=== PATIENT | male | born 1950 | race Caucasian/White ===

== ENCOUNTER 2019-09-30 16:33 | Outpatient (CLI) | payer OTHER, MEDICARE, SELFPAY ==
--- NOTE | ~2019-09-30 | US_ITS ---
EXAMINATION: US venous doppler [facility] EXAM DATE: 09/30/2019 17:07 INDICATION: Left leg swelling, lump. TECHNIQUE: Multiple grayscale, color flow and Doppler images of the left lower extremity deep venous system were obtained and reviewed. There is no prior study for comparison. FINDINGS: The left common femoral, femoral and profunda veins demonstrate normal color flow, respirat ory variation, augmentation and compressibility. Compressibility, color flow confirmed within the le ft popliteal, posterior tibial, peroneal, and greater saphenous veins. IMPRESSION: 1. No left lower extremity deep venous thrombosis. Reviewed, dictated and finalized at location A.
== END 2019-09-30 16:34 | disposition home or self-care (01) ==
PROVIDERS: PCP Emergency Medicine; Visit Provider Orthopaedic Surgery
DX: M79.662 Pain in left lower leg (principal)
CPT/HCPCS: 93971

== ENCOUNTER 2019-10-13 09:32 | Outpatient (CLI) | payer OTHER, MEDICARE, SELFPAY ==
[2019-10-13 10:41] LABS: Alanine Aminotransferase 28 U/L (4-50); Albumin Level 4.2 g/dL (3.5-5.1); Alkaline Phosphatase 73 U/L (38-126); Aspartate Amino Transferase 35 U/L (17-59); Blood Urea Nitrogen 13 mg/dL (9-20); Calcium 8.8 mg/dL (8.4-10.2); Carbon Dioxide 28 mmol/L (22-30); Chloride 104 mmol/L (98-107); Cholesterol 178 mg/dL (0-200); Estimated Glomerular Filt Rate > 60; Glucose 122 mg/dL (75-110); HDL Direct 50 mg/dL; Potassium 4.3 mmol/L (3.4-5.0); Sodium 136 mmol/L (137-145); Triglycerides 75 mg/dL (<150)
[2019-10-13 10:51] LABS: Hemoglobin A1C 5.9 % (<5.7)
[2019-10-13 10:52] LABS: LDL Cholesterol Direct 121 mg/dL
== END 2019-10-13 09:33 | disposition home or self-care (01) ==
LOC: ANHLAB 09:35
PROVIDERS: PCP Emergency Medicine; Visit Provider Emergency Medicine
DX: E78.5 Hyperlipidemia, unspecified (principal); E11.9 Type 2 diabetes mellitus without complications
CPT/HCPCS: 36415; 80053; 80061; 83036

== ENCOUNTER 2019-10-27 08:16 | Outpatient (CLI) | payer OTHER, MEDICARE, SELFPAY ==
--- NOTE | ~2019-10-27 | US_ITS ---
US art doppler w press LE BI INDICATION: Swelling and discoloration TECHNIQUE: Segmental pressures and plethysmographic and Doppler waveforms of the brachial and lower e xtremity arteries were obtained. COMPARISON: None. FINDINGS: Right and left brachial artery pressures of 1:30 mm Hg and 133 mm Hg, respectively, are concordant (n ormal difference <= 30 mmHg). No significant pressure gradients. Biphasic flow in both lower extremit y arteries. The right ankle-brachial index (JUICE) is 1.31 (normal >= 0.9-1.0). The right great toe-brachial index (TBI) is 0.76 (normal >= 0.60). The left JUICE is 1.13. The left TBI is 0.73. IMPRESSION: 1. Normal bilateral ankle and toe brachial indices. Reviewed, dictated and finalized at location A.
== END 2019-10-27 08:17 | disposition home or self-care (01) ==
PROVIDERS: PCP Emergency Medicine; Visit Provider Emergency Medicine
DX: I73.9 Peripheral vascular disease, unspecified (principal)
CPT/HCPCS: 93923

== ENCOUNTER 2020-02-16 10:24 | Outpatient (CLI) | payer OTHER, MEDICARE, SELFPAY ==
--- NOTE | ~2020-02-16 | US_ITS ---
EXAMINATION:US venous doppler LE RT INDICATION:Skin changes. Status post fall. TECHNIQUE: Multiple grayscale, color flow and Doppler images of the right lower extremity deep venous systems were obtained and reviewed. COMPARISON:No prior studies for comparison. FINDINGS: The common femoral, superficial femoral and popliteal veins demonstrate normal respiratory variation, augmentation and compressibility. Color flow is also seen within the posterior tibial, pe roneal, greater saphenous and profunda veins. IMPRESSION: 1: No lower extremity deep venous thrombosis. Reviewed, dictated and finalized at location B.
== END 2020-02-16 10:25 | disposition home or self-care (01) ==
PROVIDERS: PCP Family Medicine; Visit Provider Orthopaedic Surgery
DX: R23.8 Other skin changes (principal); M79.89 Other specified soft tissue disorders
CPT/HCPCS: 93971

== ENCOUNTER 2020-03-29 07:09 | Outpatient (CLI) | payer OTHER, MEDICARE, SELFPAY ==
[2020-03-29 07:48] LABS: Hematocrit 41.8 % (42.0-52.0); Hemoglobin 14.4 g/dL (14.0-18.0); Mean Corpuscular HGB Conc 34.4 g/dl (32-36); Mean Corpuscular Hemoglobin 31.8 pg (26-34); Mean Corpuscular Volume 92.3 fl (80-100); Mean Platelet Volume 10.1 fl (7.4-10.4); Platelet Count Result 231 k/mm3 (150-375); Red Blood Count 4.53 M/mm3 (4.6-6.20); Red Cell Distribution Width 13.4 % (11.5-14.5)
[2020-03-29 07:53] LABS: Add Urine Microscopic? NO; Appearance Urine Clear (Clear); Bilirubin Urine Negative (Negative); Blood Urine Negative (Negative); Color Urine Yellow (Yellow); Glucose Urine UA Negative (Negative); Ketones Urine Negative (Negative); Leukocyte Esterase Ur Negative LEU/UL (NEGATIVE); Nitrate Urine Negative (Negative); Protein Urine Negative (Negative); RBC Urine 0-2 /hpf (0-2); Urobilinogen Urine Negative mg/dL (<2.0)
[2020-03-29 08:01] LABS: Alanine Aminotransferase 30 U/L (4-50); Alkaline Phosphatase 56 U/L (38-126); Anion Gap 6 mmol/L (8-16); Aspartate Amino Transferase 39 U/L (17-59); Bilirubin,Total 0.8 mg/dL (0.2-1.3); Blood Urea Nitrogen 12 mg/dL (9-20); Carbon Dioxide 30 mmol/L (22-30); Chloride 103 mmol/L (98-107); Cholesterol 173 mg/dL (0-200); Estimated Glomerular Filt Rate > 60; Glucose 118 mg/dL (75-110); HDL Direct 53 mg/dL; Potassium 4.6 mmol/L (3.4-5.0); Sodium 139 mmol/L (137-145); Triglycerides 72 mg/dL (<150)
[2020-03-29 08:12] LABS: LDL Cholesterol Direct 110 mg/dL
[2020-03-29 08:31] LABS: Hemoglobin A1C 5.4 % (<5.7)
[2020-03-29 08:35] LABS: Prostate Specific Antigen 0.4 ng/mL (< OR = 4.0)
== END 2020-03-29 07:10 | disposition home or self-care (01) ==
PROVIDERS: PCP Family Medicine; Visit Provider Family Medicine
DX: E78.2 Mixed hyperlipidemia (principal); R73.01 Impaired fasting glucose; R35.1 Nocturia; R53.83 Other fatigue; I10 Essential (primary) hypertension
CPT/HCPCS: 36415; 80053; 80061; 81003; 83036; 84153; 84443; 85027

== ENCOUNTER 2020-05-02 07:33 | Outpatient (CLI) | payer OTHER, MEDICARE, SELFPAY ==
--- NOTE | 2020-05-02 | EST_ITS ---
Patient Info Name: Dimitri Yap Age: 70 years : 1950 Gender: Male Ht: 71 in Wt: 251 lbs BSA: 2.43 m2 Exam Date: 05/02/2020 8:35 AM Exam Location: [facility] Stress Patient Status: Outpatient Admit Date: 05/02/2020 Staff Ordering Physician: Jacqui Bush PA-C Attending Provider: Jacqui Bush PA-C Exercise Technologist: Tamiko Dangelo CT Exercise Physician: Joseph Zapata DO Exam Type: CA stress david w NM Study Info A regadenoson stress test was performed. Summary 1. 1. Negative lexiscan stress test for ischemic ST changes by ECG criteria. 2. 2. Stable hemodynamics throughout the test. 3. 3. Nuclear scan to follow and will be reported separately. Please correlate with it. 4. 4. Patient informed of the above results. Protocol: Lexiscan Stress ECG Details Stage: REST Duration (min): 14 min : 30 sec HR (bpm): 69 SBP (mmHg): --- DBP (mmHg): --- Stage: STAGE 1 Duration (min): 0 min : 59 sec HR (bpm): 85 SBP (mmHg): 137 DBP (mmHg): 89 Stage: RECOVERY Duration (min): 1 min : 0 sec HR (bpm): 90 SBP (mmHg): 137 DBP (mmHg): 89 Stage: RECOVERY Duration (min): 2 min : 0 sec HR (bpm): 88 SBP (mmHg): 137 DBP (mmHg): 89 Stage: RECOVERY Duration (min): 2 min : 58 sec HR (bpm): 84 SBP (mmHg): 133 DBP (mmHg): 78 Rest HR: 69 bpm Peak HR: 91 bpm Peak Sys BP: 137 mmHg Max Pred HR: 149 bpm % Max Pred HR: 61 % Target HR: 127 bpm Max RPP: 12,467 bpm*mmHg Termination Reason: Completed protocol Cardiac Symptoms: Shortness of breath Total Time: 1 min : 0 sec Peak Hayden BP: 89 mmHg Total Dose: 0.4 mg Resting ECG Sinus rhythm, RBBB. Stress ECG No ST changes. Arrhythmias None. Report Signatures
--- NOTE | ~2020-05-02 | NM_ITS ---
EXAMINATION: NM david stress w perfusion DATE: 05/02/2020 09:52 INDICATION: Chest pain. TECHNIQUE: Rest images were obtained following intravenous administration of 10 mCi Tc99m tetrofosmin (Myoview). The patient was infused intravenously with Lexiscan (regadenoson). Then, 31.9 mCi Tc99m t etrofosmin (Myoview) was administered intravenously, and stress images were obtained. Data was recons tructed into short axis and horizontal and vertical long axis SPECT images. Gated SPECT images were a lso obtained. COMPARISON: Myocardial perfusion imaging 06/10/2009 FINDINGS: There is no definite reversible or fixed perfusion abnormality to suggest ischemia or infar ction. There is no segmental wall motion abnormality. Left ventricular ejection fraction measures 6 9%. IMPRESSION: 1. No definite ischemia or infarct. 2. Normal left ventricular ejection fraction measuring 69%. Reviewed, dictated and finalized at location A. KNITTER
== END 2020-05-02 07:34 | disposition home or self-care (01) ==
PROVIDERS: PCP Family Medicine; Visit Provider Physician Assistant
DX: R07.9 Chest pain, unspecified (principal); I10 Essential (primary) hypertension; E66.9 Obesity, unspecified
CPT/HCPCS: 78452; 93017; A9502; J2785

== ENCOUNTER 2020-10-10 13:17 | Outpatient (CLI) | payer OTHER, MEDICARE, SELFPAY ==
[2020-10-10 13:48] LABS: Hemoglobin A1C 5.9 % (<5.7)
[2020-10-10 13:49] LABS: Alanine Aminotransferase 31 U/L (4-50); Albumin Level 4.2 g/dL (3.5-5.1); Alkaline Phosphatase 73 U/L (38-126); Anion Gap 9 mmol/L (8-16); Aspartate Amino Transferase 44 U/L (17-59); Bilirubin,Total 0.9 mg/dL (0.2-1.3); Blood Urea Nitrogen 14 mg/dL (9-20); Calcium 9.4 mg/dL (8.4-10.2); Carbon Dioxide 28 mmol/L (22-30); Chloride 103 mmol/L (98-107); Estimated Glomerular Filt Rate > 60; Glucose 159 mg/dL (75-110); Potassium 4.1 mmol/L (3.4-5.0); Sodium 140 mmol/L (137-145)
== END 2020-10-10 13:18 | disposition home or self-care (01) ==
PROVIDERS: PCP Family Medicine; Visit Provider Physician Assistant
DX: R73.01 Impaired fasting glucose (principal); I10 Essential (primary) hypertension
CPT/HCPCS: 36415; 80053; 83036

== ENCOUNTER 2021-04-11 06:51 | Outpatient (CLI) | payer OTHER, MEDICARE, SELFPAY ==
[2021-04-11 07:51] LABS: Alanine Aminotransferase 32 U/L (4-50); Albumin Level 4.2 g/dL (3.5-5.1); Alkaline Phosphatase 76 U/L (38-126); Anion Gap 9 mmol/L (8-16); Aspartate Amino Transferase 34 U/L (17-59); Bilirubin,Total 0.8 mg/dL (0.2-1.3); Blood Urea Nitrogen 13 mg/dL (9-20); Calcium 8.9 mg/dL (8.4-10.2); Carbon Dioxide 26 mmol/L (22-30); Chloride 102 mmol/L (98-107); Cholesterol 179 mg/dL (0-200); Estimated Glomerular Filt Rate > 60; Glucose 142 mg/dL (65-110); HDL Direct 52 mg/dL; Potassium 4.4 mmol/L (3.4-5.0); Sodium 137 mmol/L (137-145); Triglycerides 89 mg/dL (<150)
[2021-04-11 08:03] LABS: LDL Cholesterol Direct 108 mg/dL
[2021-04-11 08:08] LABS: Hematocrit 43.4 % (42.0-52.0); Hemoglobin 15.1 g/dL (14.0-18.0); Mean Corpuscular HGB Conc 34.8 g/dl (32-36); Mean Corpuscular Hemoglobin 31.7 pg (26-34); Platelet Count Result 230 k/mm3 (150-375); Red Blood Count 4.77 M/mm3 (4.6-6.20); Red Cell Distribution Width 13.2 % (11.5-14.5); White Blood Count 5.9 K/mm3 (4.5-10.0)
[2021-04-11 08:09] LABS: Add Urine Microscopic? NO; Appearance Urine Clear (Clear); Bilirubin Urine Negative (Negative); Blood Urine Negative (Negative); Color Urine Yellow (Yellow); Glucose Urine UA Negative (Negative); Ketones Urine Negative (Negative); Leukocyte Esterase Ur Negative LEU/UL (NEGATIVE); Nitrate Urine Negative (Negative); Protein Urine Negative (Negative); Urobilinogen Urine Negative mg/dL (<2.0)
== END 2021-04-11 06:52 | disposition home or self-care (01) ==
PROVIDERS: PCP Family Medicine; Visit Provider Family Medicine
DX: E78.2 Mixed hyperlipidemia (principal); R73.01 Impaired fasting glucose; I10 Essential (primary) hypertension; R35.1 Nocturia; R53.83 Other fatigue; Z00.00 Encounter for general adult medical examination without abnormal findings
CPT/HCPCS: 36415; 80053; 80061; 81003; 83036; 84153; 84443; 85027

== ENCOUNTER 2021-05-19 08:37 | Outpatient (CLI) | payer MEDICARE, SELFPAY ==
--- NOTE | ~2021-05-19 | US_ITS ---
EXAMINATION: US aorta DATE: 05/19/2021 09:27 INDICATION: Cardiovascular risk factors of a 40-50 year prior history of smoking and hypertension TECHNIQUE: Grayscale, color Doppler, and pulsed Doppler images of the aorta and common iliac arteries were obtained. COMPARISON: None. FINDINGS: The proximal aorta measures 2.1 cm in maximal AP diameter. The mid aorta measures 1.8 cm. The distal aorta measures 1.7 cm. The right common iliac artery measures 1.2 cm. The left common iliac artery me asures 1.1 cm. IMPRESSION: 1. Normal caliber abdominal aorta. Reviewed, dictated and finalized at location A. 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
== END 2021-05-19 08:38 | disposition home or self-care (01) ==
LOC: ANHIMG 08:38
PROVIDERS: PCP Family Medicine; Visit Provider Physician Assistant
DX: F17.210 Nicotine dependence, cigarettes, uncomplicated (principal)
CPT/HCPCS: 76775

== ENCOUNTER 2021-05-22 08:34 | Outpatient (CLI) | payer MEDICARE, SELFPAY ==
--- NOTE | ~2021-05-22 | CT_ITS ---
EXAMINATION: CT lung screening DATE: 05/22/2021 08:58 INDICATION: Personal history of nicotine TECHNIQUE: Computed tomography (CT) of the chest was performed without intravenous contrast. The dose -length product was 285.13 mGy-cm. Automated exposure control and iterative reconstruction technique were employed. COMPARISON: None FINDINGS: Heart size is normal. No thoracic lymphadenopathy. No significant pleural or pericardial ef fusion. The upper abdomen is unremarkable. There is bibasilar atelectasis/scarring. No pneumothorax. No endobronchial lesions. Mild emphysema. There are a few punctate 1-2 mm nodules in the lung apices which are likely benign. Moderate thoracic spondylosis. IMPRESSION: 1. Lung-RADS category 2: Benign appearance or behavior. Continue annual screening with noncontrast lo w-dose chest CT in 12 months. Reviewed, dictated and finalized at location B. TROTOLUENE OPERATOR IMPRESSION: 1. Lung-RADS category 2: Benign appearance or behavior. Continue annual screeni ng with noncontrast low-dose chest CT in 12 months.
== END 2021-05-22 08:35 | disposition home or self-care (01) ==
PROVIDERS: PCP Family Medicine; Visit Provider Physician Assistant
DX: Z12.2 Encounter for screening for malignant neoplasm of respiratory organs (principal); Z87.891 Personal history of nicotine dependence
CPT/HCPCS: 71271

== ENCOUNTER 2021-08-14 09:03 | Outpatient (CLI) | payer MEDICARE, SELFPAY ==
[2021-08-14 09:38] LABS: Alanine Aminotransferase 30 U/L (4-50); Albumin Level 3.9 g/dL (3.5-5.1); Alkaline Phosphatase 73 U/L (38-126); Anion Gap 5 mmol/L (8-16); Aspartate Amino Transferase 36 U/L (17-59); Bilirubin,Total 0.9 mg/dL (0.2-1.3); Blood Urea Nitrogen 13 mg/dL (9-20); Calcium 8.4 mg/dL (8.4-10.2); Carbon Dioxide 28 mmol/L (22-30); Chloride 103 mmol/L (98-107); Estimated Glomerular Filt Rate > 60; Glucose 140 mg/dL (65-110); Hemoglobin A1C 5.6 % (<5.7); Potassium 4.3 mmol/L (3.4-5.0); Sodium 136 mmol/L (137-145)
== END 2021-08-14 09:04 | disposition home or self-care (01) ==
PROVIDERS: PCP Family Medicine; Visit Provider Family Medicine
DX: R73.01 Impaired fasting glucose (principal)
CPT/HCPCS: 36415; 80053; 83036

== ENCOUNTER 2021-08-17 08:02 | Outpatient (CLI) | payer MEDICARE, SELFPAY ==
--- NOTE | ~2021-08-17 | XR_ITS ---
EXAMINATION: XR thoracic spine 2V DATE: 08/17/2021 08:32 INDICATION: Chronic low back pain. TECHNIQUE: 3 views of thoracic spine were obtained. COMPARISON: Thoracic spine radiographs 12/18/2010, chest CT 05/22/2021 FINDINGS: There is 3 degrees dextrocurvature of thoracic spine. There is mild chronic anterior wedgin g of T7 and T8 vertebral bodies. There is mildly decreased disc height at T4-T5 and T5-T6 and from T8 -T9 through T12-L1. There are endplate osteophytes at most levels with bridging osteophytes from T7 t o T12, consistent with diffuse idiopathic skeletal hyperostosis (DISH). There are changes of anterior fusion procedure at C6-C7. IMPRESSION: 1. Mild thoracic spondylosis. 2. DISH. Reviewed, dictated and finalized at location B.
--- NOTE | ~2021-08-17 | XR_ITS ---
EXAMINATION: XR lumbar spine 2-3V EXAM DATE: 08/17/2021 08:32 INDICATION: Chronic low back pain. TECHNIQUE: Lumber spine frontal, lateral, lateral L5-S1 projections for interpretation. There is no prior study for comparison. FINDINGS: There is moderate to severe loss of the L4-5 disc height, mild to moderate disc disease at the other lumbar levels. There is overall moderate lumbar facet arthropathy. Moderate aortic arterio sclerosis. Sacral neural stimulator extending to the right side, probably S3-4. Large right lateral b ridging endplate osteophyte at L1-2. Small to moderate endplate osteophytes at other levels.. Sacrum, sacroiliac joints, sacral arcuate lines are intact. Moderate bilateral hip primary osteoarthritis. T he vertebral bodies are aligned in the AP dimension. IMPRESSION: 1. L4-5 moderate to severe disc disease. 2. Moderate facet arthropathy. Reviewed, dictated and finalized at location A.
== END 2021-08-17 08:03 | disposition home or self-care (01) ==
PROVIDERS: PCP Family Medicine
DX: M54.50 Low back pain, unspecified (principal); M51.9 Unspecified thoracic, thoracolumbar and lumbosacral intervertebral disc disorder; M12.88 Other specific arthropathies, not elsewhere classified, other specified site; M47.814 Spondylosis without myelopathy or radiculopathy, thoracic region; M48.14 Ankylosing hyperostosis [Forestier], thoracic region
CPT/HCPCS: 72070; 72100

== ENCOUNTER 2022-02-14 08:31 | Outpatient (CLI) | payer MEDICARE, SELFPAY ==
[2022-02-14 08:50] LABS: Basophils Percent Auto 0.4 % (0.2-1.2); Eosinophils Absolute Auto 0.1 K/mm3 (0-0.3); Eosinophils Percent Auto 1.5 % (0-4.4); Hematocrit 43.4 % (42.0-52.0); Hemoglobin 14.9 g/dL (14.0-18.0); Immature Granulocyte Absolute 0.02 K/mm3 (0.00-0.031); Immature Granulocyte Percent A 0.4 % (0-0.5); Lymphocytes Absolute Auto 1.05 K/mm3 (0.9-3.2); Lymphocytes Percent Auto 19.4 % (18.3-44.2); Mean Corpuscular HGB Conc 34.3 g/dl (32-36); Mean Corpuscular Hemoglobin 31.6 pg (26-34); Mean Corpuscular Volume 91.9 fl (80-100); Mean Platelet Volume 9.5 fl (7.4-10.4); Monocytes Absolute Auto 0.7 K/mm3 (0.1-0.6); Monocytes Percent Auto 13.1 % (2.6-8.5); Neutrophils Absolute Auto 3.5 K/mm3 (1.3-6.7); Neutrophils Percent Auto 65.2 % (45.5-73.1); Platelet Count Result 212 k/mm3 (150-375); Red Blood Count 4.72 M/mm3 (4.6-6.20); Red Cell Distribution Width 13.2 % (11.5-14.5); White Blood Count 5.4 K/mm3 (4.5-10.0)
[2022-02-14 09:03] LABS: Alanine Aminotransferase 31 U/L (6-50); Albumin Level 4.2 g/dL (3.5-5.1); Alkaline Phosphatase 77 U/L (38-126); Anion Gap 10 mmol/L (8-16); Aspartate Amino Transferase 32 U/L (17-59); Bilirubin,Total 0.9 mg/dL (0.2-1.3); Blood Urea Nitrogen 11 mg/dL (9-20); Calcium 8.8 mg/dL (8.4-10.2); Carbon Dioxide 26 mmol/L (22-30); Chloride 103 mmol/L (98-107); Estimated Glomerular Filt Rate > 60; Glucose 150 mg/dL (65-110); Potassium 4.4 mmol/L (3.4-5.0); Sodium 139 mmol/L (137-145)
[2022-02-14 09:03] LABS: Add Urine Microscopic? NO; Appearance Urine Clear (Clear); Bilirubin Urine Negative (Negative); Blood Urine Negative (Negative); Color Urine Yellow (Yellow); Glucose Urine UA Negative (Negative); Ketones Urine Negative (Negative); Leukocyte Esterase Ur Negative LEU/UL (NEGATIVE); Nitrate Urine Negative (Negative); Protein Urine Negative (Negative); Urobilinogen Urine Negative mg/dL (<2.0)
[2022-02-14 09:04] LABS: Cholesterol 169 mg/dL (0-200); HDL Direct 46 mg/dL; Triglycerides 107 mg/dL (<150)
[2022-02-14 09:05] LABS: Hemoglobin A1C 6.3 % (<5.7)
[2022-02-14 09:15] LABS: LDL Cholesterol Direct 103 mg/dL
[2022-02-14 09:34] LABS: Prostate Specific Antigen 0.6 ng/mL (< OR = 4.0)
== END 2022-02-14 08:32 | disposition home or self-care (01) ==
PROVIDERS: PCP Family Medicine; Visit Provider Physician Assistant
DX: Z00.00 Encounter for general adult medical examination without abnormal findings (principal); R35.1 Nocturia; E78.2 Mixed hyperlipidemia; I73.9 Peripheral vascular disease, unspecified; E66.9 Obesity, unspecified; R73.01 Impaired fasting glucose; I10 Essential (primary) hypertension
CPT/HCPCS: 36415; 80053; 80061; 81003; 83036; 84153; 84443; 85025

== ENCOUNTER 2022-06-18 08:33 | Outpatient (CLI) | payer MEDICARE, SELFPAY ==
--- NOTE | ~2022-06-18 | XR_ITS ---
EXAMINATION: XR fl inj shoulder RT - MR/CT DATE: 06/18/2022 09:42 INDICATION: Right shoulder pain TECHNIQUE: A time-out was performed to verify the patient's name, date of , and procedure to b e performed. The procedure including the risks, benefits, and alternatives was discussed with the pat ient. Risks discussed included bleeding and infection. The patient understood the risks and agreed to proceed. The skin overlying the rotator cuff interval of the right glenohumeral joint was prepped a nd draped in usual sterile fashion. Anesthetic was administered with 1% lidocaine subcutaneously. A 22 G needle was advanced under fluoroscopic guidance into the joint. 12 mL of 3:2:1 mixture of steri le saline:Omnipaque 240:1% lidocaine was injected with intra-articular position confirmed with interm ittent fluoroscopy. The needle was removed and the entry site was cleaned and dressed. There were no immediate complications. Fluoroscopy exposure time was 0.3 minutes. The total number of images was 1 44. Total DAP was 1.313 Gycm^2 FINDINGS: Real-time fluoroscopy demonstrates the needle in the right glenohumeral joint. IMPRESSION: 1. Successful right glenohumeral joint injection of a dilute estimated contrast mixture for subsequen t CT angiogram which will be dictated separately. Reviewed, dictated and finalized at location A. S BUFFER IMPRESSION: 1. Successful right glenohumeral joint injection of a dilute estimated contrast mixture for subsequent CT angiogram which will be dictated separately.
--- NOTE | ~2022-06-18 | CT_ITS ---
EXAMINATION: CT shoulder RT w con DATE: 06/18/2022 09:42 INDICATION: Right shoulder pain TECHNIQUE: High resolution computed tomography (CT) of the right shoulder was performed following int ra-articular demonstration of a dilute iodinated contrast mixture but without intravenous contrast. D etails of the contrast mixture and joint injection have been dictated separately. Additional sagittal and coronal reconstructions were performed. Automated exposure control and iterative reconstruction technique were employed. The dose-length product was 563.94 mGy-cm. COMPARISON: Right shoulder radiographs dated 04/05/2022 FINDINGS: Bone alignment is normal. No fracture. There is moderate-sized inferiorly directed anterior subacromi al spur along with heterotopic ossifications along the coracoacromial ligament. Moderate acromioclavi cular osteoarthritis. Mild to moderate glenohumeral osteoarthritis with partial thickness cartilage l oss and mild chondral surface irregularity most prominent along the cephalad half of the glenoid and inferomedial aspect of the humeral head. There is some chondrocalcinosis at the cephalad aspect of th e humeral head. Small marginal osteophytes along the posterior inferior aspect of the glenoid. There is a superior, anterior to posterior tear of the glenoid labrum (SLAP tear) beginning of anteriorly a t the 1:00 position and extending posteriorly to the 11:00 position. There is an additional tear begi nning posteriorly at the 9:00 position extending posteriorly and anteriorly to the 5:00 position of t he anteroinferior glenoid with irregular degenerative appearance along the inferior labrum. There is a complete tear and distal retraction of the intra-articular long head of the biceps tendon with smal l amount of residual frayed tendon material remaining attached to the glenoid anchor. The frayed and attenuated distal tear margin is retracted to the level of the caudal aspect of the intertubercular g roove. This also below the level of a small round lucency at the intertubercular groove which suggest s site of a prior bicipital tenodesis. Subtle imbibition of a minimal amount of contrast into the dis kiah supraspinatus tendon along the superior facet footplate of the greater tuberosity but with no dis crete measurable tear defect. This could be related to a prior repaired tear as there appear to be co uple suture anchors along the superior facet. No evident contrast enhancement of the subacromial/subd eltoid bursa to suggest a full-thickness rotator cuff perforation. No loose osteochondral bodies iden tified. Mild emphysema. No suspicious lymphadenopathy right axilla or visualized mediastinum and righ t hilum. IMPRESSION: 1. Mild to moderate glenohumeral osteoarthritis with tears of the superior and posterior to inferior glenoid labrum. 2. Suggestion of a prior supraspinatus tendon repair with lucent likely suture anchor sites along the superior facet of the greater tuberosity. Minimal contrast imbibition into the distal supraspinatus tendon which would be a normal finding post repair with no discrete measurable tear defect to suggest a significant recurrent articular sided tear. 3. Full-thickness tear and distal retraction of the intra-articular long head biceps tendon. There ma y have been a prior bicipital tenodesis however the frayed and attenuated margin of the more distal t endon appears retracted below the level of the lucent potential anchor site. Correlate with surgical history. Reviewed, dictated and finalized at location A. CTOR CLINICAL APPLICATIONS
== END 2022-06-18 08:34 | disposition home or self-care (01) ==
PROVIDERS: PCP Family Medicine; Visit Provider Orthopaedic Surgery
DX: M19.011 Primary osteoarthritis, right shoulder (principal)
CPT/HCPCS: 23350; 73201; 77002; Q9966

== ENCOUNTER 2022-07-24 09:48 | Outpatient (CLI) | payer MEDICARE, SELFPAY ==
--- NOTE | 2022-07-24 10:05 | ECG_ITS ---
Measurements Intervals [place] Rate: 72 P: 44 CT: 146 QRS: 4 QRSD: 141 T: 11 QT: 413 QTc: 455 Interpretive Statements SINUS RHYTHM WITH SINUS ARRHYTHMIA RIGHT BUNDLE BRANCH BLOCK BASELINE ARTIFACT- I, II, III, AVR, AVL, AVF ABNORMAL ECG NO PREVIOUS ECG AVAILABLE FOR COMPARISON Electronically Signed On 07-24-2022 10:28:23 CDT by Joseph Zapata D.O.
== END 2022-07-24 09:49 | disposition home or self-care (01) ==
LOC: ANHSURGERY 09:52
PROVIDERS: PCP Family Medicine; Visit Provider Orthopaedic Surgery
DX: I10 Essential (primary) hypertension (principal); Z01.818 Encounter for other preprocedural examination; I45.10 Unspecified right bundle-branch block
CPT/HCPCS: 93005

== ENCOUNTER 2022-07-30 00:59 | Day surgery (SDC) | payer MEDICARE, SELFPAY ==
[2022-07-23 09:12] VITALS: BMI 36.1
--- NOTE | 2022-07-23 09:26 | PC.NURSE ---
PRE-OP INSTRUCTIONS, PLEASE READ CAREFULLY Report to the Outpatient Waiting Room, entrance under the green pavilion located off [facility], at time _0830_ on date _07/30/22_. Planned Procedure Time: _1030_. Time changes happen often and if your time is changed the preop area will call you the afternoon before. - You and your visitor will be asked to self-screen and do not enter if you have any COVID symptoms. - Only one visitor is requested with a max of two and NO children visitors are allowed at this time. - The patient visitor may be requested to leave or wait in car when not with patient due to distancing restrictions. - A mask is optional within the hospital at this time. Patients may have clear liquids (water, carbonated beverages, clear teas, apple juice) until 3 hours prior to surgery (0730 AM) with a maximum of 20 ounces. - No food from midnight until time of surgery Take the following medications with a SIP of water the morning of surgery: _METANX & ALPRAZOLAM IF NEEDED_ DO NOT STOP ANY OF YOUR OTHER PRESCRIPTION MEDICATIONS PRIOR TO SURGERY ?EXCEPT THE FOLLOWING Medications to discontinue _ASPIRIN PER DR. ARCE'S INSTRUCTIONS_ Medications to discontinue per ANESTHESIA -_ALL VITAMINS & SUPPLEMENTS 3 DAYS PRIOR TO SURGERY, Date to take last dose 07/26/22_ Please no make-up, nail faroese, hairspray, perfume, deodorant, or body powder the day of surgery. No jewelry (including any body piercings) or valuables the day of surgery, leave them at home. Please take a shower or bath the night before, or the morning of, surgery with an antibacterial soap. Wear comfortable, loose fitting clothing. - Jewelry must be removed prior to entering the operating room. Rings and piercings that are not removed may be cut off. - The hospital will not accept responsibility for valuables. - Please leave all valuables, including medications, at home the day of surgery. If you are going home after surgery, a licensed school boat driver must drive you home. - NO public transportation without another adult if you receive anesthesia. - We recommend that an adult stay with you for 24 hours following discharge. - We also recommend that you do not drive, make important decision, drink alcoholic beverages, or take any drugs that were not prescribed by your health care provider for at least 24 hours after your discharge time. Follow any additional instructions given to you from your surgeon. If you or anyone in your household have experienced Covid symptoms in the past week, please notify your surgeon or the nurse liaison at the phone number below for possible testing. Telephone instructions given to _PATIENT_and asked if any additional questions and then verbalized understanding. Patient advised to call surgeon office or pre surgery nurse liaison [phone] if any additional questions.
[2022-07-30] VITALS (11 sets, daily range): BP systolic 126–150; BP diastolic 57–87; PULSE 64–92; RESP 14–21; TEMP 36.1–36.4; O2SAT 90–99
[2022-07-30] MEDS: LACTATED RINGERS 1,000 ML 30 ML IV CONT ×2 (08:50→12:36)
[2022-07-30] MEDS: ACETAMINOPHEN 500 MG TABLET 1000 MG PO (09:10)
[2022-07-30] MEDS: KETOROLAC 15 MG/ML VIAL (*BKC) IV PUSH (09:18)
--- NOTE | 2022-07-30 09:32 | WPDHPUPDATE1 ---
History and Physical Update Update Date/Time: 07/30/22 09:32 History and Physical has been reviewed, including an updated exam of the patient. There are NO changes in the patient's condition. Risks, benefits, and alternatives have been discussed and questions answered. Patient agrees to proceed with procedure.
--- NOTE | 2022-07-30 09:37 | WPDANESEPPF ---
Anes - Initial Pre Proc Eval Procedure: Operation Date: 07/30/22 10:30 Proposed Procedures p Right Shoulder Acromioplasty With Distal Clavicle Excision - Geovanny Topete MD Date/Time: 07/30/22 09:37 Surgeon: Geovanny Topete MD Pre Op Diagnosis: Right shoulder impingement with shoulder arthritis Patient Data Age: 72 Gender: M Height: 1.79 m Weight: 118 kg Last Vital Signs Temp 36.1 C L 07/30/22 08:56 Pulse 65 07/30/22 08:56 Resp 16 07/30/22 08:56 BP 128/57 L 07/30/22 08:56 Pulse Ox 96 07/30/22 08:56 O2 Del Method Room Air 07/30/22 08:56 Allergies Allergy/AdvReac Type Severity Reaction Status Date / Time No Known Allergies Allergy Verified 07/30/22 09:01 Home Medications Medication Instructions Recorded Confirmed Type aspirin 81 mg tablet,delayed 81 mg PO DAILY 04/10/19 07/30/22 History release magnesium 250 mg tablet 250 mg PO BID 04/10/19 07/30/22 History vitamin B complex 1 tablet PO DAILY 04/10/19 07/30/22 History vitamin E 268 mg (400 unit) capsule 800 unit PO QAM 04/10/19 07/30/22 History glucosamine sulfate 500 mg tablet 500 mg PO BID 06/23/19 07/30/22 History (Glucosamine) multivitamin 1 tablet PO DAILY 06/23/19 07/30/22 History atenolol 25 mg tablet See Rx Instructions .Route 06/08/21 07/30/22 Rx .COMPLEX #90 tabs alprazolam 0.5 mg tablet (Xanax) 0.5 mg PO DAILY PRN anxiety #30 07/12/22 07/30/22 Rx tabs alpha lipoic acid 600 mg tablet 600 mg PO BID 07/23/22 07/30/22 History mecobalamin-levomefolate 1 tablet PO BID 07/23/22 07/30/22 History calcium-pyridoxal phos 3 mg-35 mg-2 mg tablet potassium gluconate 600 mg (99 mg) 600 mg PO QAM 07/23/22 07/30/22 History tablet tamsulosin 0.4 mg capsule 0.4 mg PO HS 07/23/22 07/30/22 History chondroitin sulfate A sodium 400 1,200 mg PO DAILY 07/24/22 07/30/22 History mg capsule Patient hx anesthesia problems: none Family hx anesthesia problems: none Results Review: All pre-operative results and documents have been reviewed as part of the pre-operative evaluation. [facility] Past Medical History Medical History Arthritis of right acromioclavicular joint Hemoglobin A1c less than 7.0% 10/13/19 A1c was 5.9 History of actinic keratoses History of skin cancer IFG (impaired fasting glucose) Surgical History Surgical History Bone spur Spine H/O repair of rotator cuff Right History of elbow surgery Right 2000 History of knee replacement 2003 Dr. Topete-Dr. Hernandez History of neck surgery 2003 History of surgery on arm Left arm-tendon transfer Family History Family History Son Cancer Grandparent Heart disease Mother CHF (congestive heart failure) Social History Social History Years smoked: 55 Smoking status: Former smoker Tobacco type: cigarettes Second hand tobacco smoke exposure: Yes Additional smoking assessment comments: STATES WAS SMOKING 2PK/DAY-THEN 1PK/MONTH-NOW OCCASSIONAL CIGARETTE - 55YRS Alcohol intake: current Drinks per week: 30 Alcohol use details: 30PK BEER/WEEK Substance use: never Substance use type: does not use Living arrangements: with family Additional living arrangements comments: Yandy Yap Occupation/Education: occupation 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
[2022-07-30] MEDS: ceFAZolin 2 GM/D5W 50 ML 2 GM/50 ML BAG IVPB (10:16)
--- NOTE | 2022-07-30 10:17 | WPDANESPNB ---
Anes - Peripheral Nerve Block Date/Time: 07/30/22 10:17 I have discussed with the patient/family/POA the placement of a peripheral nerve block for post-operative pain management, including associated risks, benefits, complications, and side effects. Alternative methods of post-operative analgesia were detailed. Questions were solicited and answers provided to the satisfaction of the patient/family/POA. Time-Out: A pre-procedural Time-Out was completed immediately before starting the procedure and confirmed: Patient Identification, Site, Procedure, Patient Position and the Availability of Requisite Equipment. Clinical Indications: Acute post-operative pain management requested by the operative surgeon. Nerve Block Insertion Note Anes-nerve block: interscalene right Patient position: other (sitting) Skin prep: chlorhexidine Needle: 22 gauge, stimulating, insulated echogenic needle. Needle length: 50 mm Technique: nerve stimulation lost at (mA) and ultrasound Technique comment: mid2mg [id number] Injectate: bupivacaine 0.5% with epi 5 mcg/ml (30ml no epi) and dexamethasone (mg) (4) Observations: tolerated well Complications: none Procedure start time:: 1003 Procedure end time:: 1010
[2022-07-30] MEDS: BUPIVACAINE/EPINEPHRINE 0.25% 50 ML VIAL INFILTRATE (10:52)
--- NOTE | 2022-07-30 11:42 | W.PM.PROC2 ---
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 Surgeon Geovanny Topete MD Manager Financial Systems Hector Ackerman Anesthesia General and Regional Description of Procedure Patient was identified and proper site identified. In the preop holding area the anesthesia team performed a right upper extremity block. He was then taken to the operating room and transferred to the or table taking care to pad the torso and extremities. After general anesthetic induction and intubation, he was put in a semi beach chair position in the usual manner for a right shoulder procedure. His head was secured taking care to neither rotate nor extend the head and neck. The right upper extremity was prepped and draped free in usual sterile fashion. The subcutaneous tissue in the area of the incision was injected with 10 cc of 0.25% Marcaine and epinephrine solution. An oblique anterior incision was made extending from the AC joint distally in line with the fibers of the deltoid. Subcutaneous tissue was sharply dissected down to the deltoid fascia. The deltoid was dissected off the anterior portion of the acromion in the distal end of the clavicle. A 2 cm split was made at the junction between the anterior and middle thirds of the deltoid. Using the microsagittal saw the last 8 mm of clavicle removed. The saw was also used to perform the acromioplasty and then the undersurface of the acromion was rasped smooth. There was some scarred bursa overlying rotator cuff which was debrided. Rotator cuff was inspected and noted to be in good condition. No evidence for tearing. The wound was irrigated with sterile NaCl solution. The deltoid was repaired back to the acromion with 2. Ethibond suture passed through bone and the remainder of the deltoid repair carried out with 2. Vicryl. Subcutaneous tissue was reapproximated with 2. Strata fix and then tissue adhesive used for the skin. Sterile dressing was applied. There were no known intraoperative complications, and perioperative antibiotics were administered. Estimated Blood Loss 10 Drains No Packing No Pathology None sent Complications No immediate complications Condition Stable Disposition PACU [facility] Billing Surgery - Charge Forward: Surgery Billing ([id number], [id number])
== END 2022-07-30 14:40 | disposition home or self-care (01) ==
PROVIDERS: PCP Family Medicine; Visit Provider Orthopaedic Surgery
PROC: (CPT 23420; principal; 2022-07-30 10:30)
DX: M19.011 Primary osteoarthritis, right shoulder (principal); M75.41 Impingement syndrome of right shoulder; G89.18 Other acute postprocedural pain; Z79.82 Long term (current) use of aspirin; Z87.891 Personal history of nicotine dependence; E66.9 Obesity, unspecified; Z68.36 Body mass index [BMI] 36.0-36.9, adult
CPT/HCPCS: 23120; 23130; 64415; 93005; A4565; A9270; J0330; J0690; J1100; J1170; J1885; J2250; J2405; J2704; J3010; J7120

== ENCOUNTER 2022-08-13 09:16 | Outpatient (CLI) | payer MEDICARE, SELFPAY ==
[2022-08-13 09:58] LABS: Alanine Aminotransferase 29 U/L (6-50); Albumin Level 4.1 g/dL (3.5-5.1); Alkaline Phosphatase 94 U/L (38-126); Anion Gap 4 mmol/L (8-16); Aspartate Amino Transferase 31 U/L (17-59); Blood Urea Nitrogen 13 mg/dL (9-20); Calcium 8.7 mg/dL (8.4-10.2); Carbon Dioxide 28 mmol/L (22-30); Chloride 106 mmol/L (98-107); Estimated Glomerular Filt Rate > 60; Glucose 146 mg/dL (65-110); Potassium 4.2 mmol/L (3.4-5.0); Sodium 138 mmol/L (137-145)
[2022-08-13 10:12] LABS: Hemoglobin A1C 6.2 % (<5.7)
== END 2022-08-13 09:17 | disposition home or self-care (01) ==
PROVIDERS: PCP Family Medicine; Visit Provider Family Medicine
DX: E11.9 Type 2 diabetes mellitus without complications (principal)
CPT/HCPCS: 36415; 80053; 83036

== ENCOUNTER 2022-08-31 09:54 | Outpatient (CLI) | payer MEDICARE, SELFPAY ==
--- NOTE | ~2022-08-31 | CT_ITS ---
EXAMINATION: CT lung screening DATE: 08/31/2022 10:20 INDICATION: lung cancer screening TECHNIQUE: Computed tomography (CT) of the chest was performed without intravenous contrast. Addition al 3D reconstructions utilizing coronal maximum intensity projection (MIP) were performed. Automated exposure control and iterative reconstruction technique were employed. The dose-length product was 39 1.55 mGy-cm. COMPARISON: 05/22/2021 FINDINGS: Mild emphysema. Again seen are mild peripheral linear opacities consistent with atelectasis at the de pendent and basilar lower lungs. No suspicious pulmonary nodules, pneumonia, pulmonary edema or pleur al effusion. Heart size is normal. Atherosclerotic coronary artery calcific location. No pericardial effusion. Thoracic aorta is normal in caliber. No pathologically enlarged thoracic lymphadenopathy. M ild diffuse hepatic steatosis. Moderate thoracic spondylosis with bridging osteophytes at multiple le vels consistent with diffuse idiopathic skeletal hyperostosis (DISH). C6-C7 anterior spinal fusion wi th anterior plate and screw fixation. IMPRESSION: 1. Lung-RADS category 1: Negative. Continue annual screening with noncontrast low-dose chest CT in 12 months. Reviewed, dictated and finalized at location [facility]. IMPRESSION: 1. Lung-RADS category 1: Negative. Continue annual screening with noncontrast l ow-dose chest CT in 12 months.
== END 2022-08-31 09:55 | disposition home or self-care (01) ==
PROVIDERS: PCP Family Medicine; Visit Provider Family Medicine
DX: Z12.2 Encounter for screening for malignant neoplasm of respiratory organs (principal); Z87.891 Personal history of nicotine dependence
CPT/HCPCS: 71271

== ENCOUNTER 2022-09-10 08:45 | Outpatient (RCR) | payer MEDICARE, SELFPAY ==
[2022-08-01 08:05] VITALS: BP_SYST 100
--- NOTE | 2022-08-01 08:59 | PTOPEVAL1 ---
Assessment and note entered by aCrla Guthrie, PT Evaluation Information Assessment Status Evaluation Diagnosis s/p R shoulder acromioplasty with distal clavicle excision Onset 07-30-22 Subjective Information using sling PRN, keeping arm on a pillow and using ice; told him to not lift overhead; back started hurting few days ago, so not walking very well; Reported Pain Level Pain Score Self Report Additional Pain Score Comments pain range of 3-9/10; sore, hurts; using ice, elevation, prescription pain med - taking 2x/day; and ibuprofen PRN; sleeping in the recliner-- awaken throughout the night due to pain; Assessment PT Clinical Summary Juan is s/p R shoulder acromioplasty with distal clavicle excision 2 days ago. Prior to surgery, he was retired, but active and indep with all tasks. With the evaluation, he has decreased passive ROM of shoulder- flexion and abduction to 100'; elbow, wrist and hand are WNL. Expect him to progress well with treatments and be able to return to his prior level of activity. Skilled PT services are indicated for modalities for pain control, therapeutic exercises to increase R shoulder ROM and strength per protocol- --PROM, AAROM, AROM, gentle strengthening-- progression as pt tolerates. Plan of Care Interventions Electrical Stimulation,Hot Pack/Cold Pack,Manual Therapy,Patient/Caregiver Education,Therapeutic Activities,Therapeutic Exercise,Ultrasound,Other Other Interventions taping PT Services Indicated Yes Treatment Frequency and 2-3x/wk for 6 weeks Duration These treatments will address the objective and functional deficits as defined above. The patient will be advanced safely and appropriately in order for the patient to progress towards his/her prior level of function. Additional exercises will be introduced and as well as a comprehensive home exercise program upon discharge, if needed, ?to ensure carryover of functional gains achieved in the clinic. This treatment plan has been reviewed and agreement upon by the patient.
--- NOTE | 2022-08-01 09:00 | PTOPEVAL1 ---
Assessment and note entered by Carla Guthrie, PT Evaluation Information Assessment Status Evaluation Diagnosis s/p R shoulder acromioplasty with distal clavicle excision Onset 07-30-22 Subjective Information using sling PRN, keeping arm on a pillow and using ice; told him to not lift overhead; back started hurting few days ago, so not walking very well; Reported Pain Level Pain Score Self Report Additional Pain Score Comments pain range of 3-9/10; sore, hurts; using ice, elevation, prescription pain med - taking 2x/day; and ibuprofen PRN; sleeping in the recliner-- awaken throughout the night due to pain; Assessment PT Clinical Summary Juan is s/p R shoulder acromioplasty with distal clavicle excision 2 days ago. Prior to surgery, he was retired, but active and indep with all tasks. With the evaluation, he has decreased passive ROM of shoulder; elbow, wrist and hand are WNL. Expect him to progress well with treatments and be able to return to his prior level of activity. Skilled PT services are indicated for modalities for pain control, therapeutic exercises to increase R shoulder ROM and strength per protocol- --PROM, AAROM, AROM, gentle strengthening-- progression as pt tolerates. Plan of Care Interventions Electrical Stimulation,Hot Pack/Cold Pack,Manual Therapy,Patient/Caregiver Education,Therapeutic Activities,Therapeutic Exercise,Ultrasound,Other Other Interventions taping PT Services Indicated Yes Treatment Frequency and 2-3x/wk for 4 weeks Duration These treatments will address the objective and functional deficits as defined above. The patient will be advanced safely and appropriately in order for the patient to progress towards his/her prior level of function. Additional exercises will be introduced and as well as a comprehensive home exercise program upon discharge, if needed, ?to ensure carryover of functional gains achieved in the clinic. This treatment plan has been reviewed and agreement upon by the patient.
--- NOTE | 2022-08-20 09:00 | PCPTNOTE ---
Patient called & cancelled scheduled appointment this date due to having another appointment.
--- NOTE | 2022-08-24 09:37 | PTOPPROG ---
Assessment and note entered by Carla Guthrie, PT Evaluation Information Assessment Status Progress Diagnosis s/p R shoulder acromioplasty with distal clavicle excision Onset 07-30-22 Subjective Information Juan reports: shoulder is doing great, no longer using the sling; doing the exercises, have problems with lying on R side with sleeping; pain range in the past week 0-6/10 R shoulder; been doing ok, except this AM, did quick motion of raising his arm to hug his son and sharp pain; decreased pain with rest, ice; over the counter meds PRN; Assessment PT Clinical Summary Juan has received 10 sessions. Compared to the initial evaluation: pain rating has decreased at the low and high ratings; increase strength and ROM of R shoulder- active flexion & abduction 135'; progression of HEP and protocol s/p shoulder surgery. Continue PT for R shoulder strengthening, with progression as tolerated. Plan of Care Interventions Electrical Stimulation,Hot Pack/Cold Pack,Manual Therapy,Neuro Re-education,Patient/Caregiver Education,Therapeutic Activities,Therapeutic Exercise,Ultrasound,Other Other Interventions taping PT Services Indicated Yes Treatment Frequency and 2x/wk for 4 weeks Duration These treatments will address the objective and functional deficits as defined above. The patient will be advanced safely and appropriately in order for the patient to progress towards his/her prior level of function. Additional exercises will be introduced and as well as a comprehensive home exercise program upon discharge, if needed, ?to ensure carryover of functional gains achieved in the clinic. This treatment plan has been reviewed and agreement upon by the patient.
--- NOTE | 2022-09-18 09:39 | PTOPDC ---
Assessment and note entered by Carla Guthrie, PT Evaluation Information Assessment Status Discharge - Pt Not Present Diagnosis s/p R shoulder acromoplasty with distal clavicle excision Onset 07-30-22 Assessment PT Clinical Summary Mr. Yap has received 13 PT sessions from August 01 to September 10. He called and canceled his therapy--stated he was doing well and did not need any more therapy. The goals were not addressed. Discharge PT per pt request. Plan of Care PT Services Indicated No
== END 2022-09-18 13:49 | disposition home or self-care (01) ==
LOC: ANHPT 08:45
PROVIDERS: PCP Family Medicine; Visit Provider Orthopaedic Surgery
DX: Z48.89 Encounter for other specified surgical aftercare (principal); Z98.890 Other specified postprocedural states
CPT/HCPCS: 97014; 97110; 97112; 97140; 97161; G0283

== ENCOUNTER 2022-10-31 14:35 | Outpatient (CLI) | payer MEDICARE, SELFPAY ==
--- NOTE | ~2022-10-31 | CT_ITS ---
EXAMINATION: CT abdomen pelvis wo con DATE: 10/31/2022 15:06 INDICATION: Right flank pain TECHNIQUE: Computed tomography (CT) of the abdomen and pelvis was performed without intravenous contr ast. Automated exposure control and iterative reconstruction technique were employed. Exam dose: 136 3.80 mGy-cm total exam DLP. COMPARISON: 10/31/2022 K[facility] 01/13/2015 abdominal ultrasound examination FINDINGS: Mild multifocal discoid atelectasis or scarring at the lung bases. Normal heart size. Coronary artery calcification. No pericardial or pleural effusion. Small sliding hiatal hernia. No hepatic, splenic, pancreatic, adrenal or suspicious renal space-occupying mass lesion is evident. Possible approximately 1 cm right renal cyst. No urinary tract calculus or hydroureteronephrosis. The urinary bladder is unremarkable except for a couple of small diverticula. Mild prostate enlargement. There is extensive atherosclerotic calcification of the abdominal aorta and renal arteries. No abdomi nal aortic aneurysm. Prominent calcification of the iliac arteries. No intraperitoneal or retroperitoneal or pelvic mass lesion or adenopathy or ascites is detected. There are numerous diverticula of the left colon; no evidence of diverticulitis. No bowel obstruction, bowel wall thickening, pneumatosis or intraperitoneal free air. Small bilateral fat-containing inguinal hernias and small fat-containing umbilical hernia. Diffuse idiopathic skeletal hyperostosis of the thoracic spine. Multilevel degenerative disc disease the lumbar spine, particularly L3-4 and most prominently L4-5. A neurostimulator lead is noted through the right S3 neural foramen. Bilateral prominent hip osteoarthritis. IMPRESSION: No urinary tract calculus or hydroureteronephrosis Probable approximately 1 cm right renal cyst Small bladder diverticula Mild prostate enlargement Diverticulosis of the left colon; no CT evidence of diverticulitis Small bilateral fat-containing inguinal hernias and small fat-containing umbilical hernia Reviewed, dictated and finalized at [facility]. Reviewed, dictated and finalized at location [facility]. IMPRESSION: No urinary tract calculus or hydroureteronephrosis Probable approximately 1 cm right renal cyst Small bladder diverticula Mild prostate enlargement Diverticulosis of the left colon; no CT evidence of diverticulitis Small bilateral fat-containing inguinal hernias and small fat-containing umbili angi hernia
--- NOTE | ~2022-10-31 | XR_ITS ---
XR abdomen/kub 1V DATE: 10/31/2022 15:01 INDICATION: Right flank pain TECHNIQUE: AP projection, 2 views COMPARISON: 10/31/2022 CT abdomen pelvis FINDINGS: No urinary tract calcification is evident. No visceromegaly is evident. The bowel gas pattern is unremarkable, without evidence of obstruction. Right-sided generator device with sacral neurotransmitter lead. Multilevel degenerative disc disease of the thoracic and lumbar spine. Mild bilateral hip osteophytes arthritis. IMPRESSION: Nonspecific abdomen; no evidence of urinary tract calcifications Reviewed, dictated and finalized at [facility]. Reviewed, dictated and finalized at location [facility].
== END 2022-10-31 14:36 | disposition home or self-care (01) ==
PROVIDERS: PCP Family Medicine; Visit Provider Urology
DX: R10.9 Unspecified abdominal pain (principal); N32.3 Diverticulum of bladder; N40.0 Benign prostatic hyperplasia without lower urinary tract symptoms; K57.30 Diverticulosis of large intestine without perforation or abscess without bleeding; K40.20 Bilateral inguinal hernia, without obstruction or gangrene, not specified as recurrent; K42.9 Umbilical hernia without obstruction or gangrene
CPT/HCPCS: 74018; 74176

== ENCOUNTER 2023-02-12 09:31 | Outpatient (CLI) | payer MEDICARE, SELFPAY ==
[2023-02-12 10:31] LABS: Hematocrit 44.9 % (42.0-52.0); Hemoglobin 15.1 g/dL (14.0-18.0); Mean Corpuscular HGB Conc 33.6 g/dl (32-36); Mean Corpuscular Hemoglobin 31.1 pg (26-34); Mean Corpuscular Volume 92.6 fl (80-100); Platelet Count Result 233 k/mm3 (150-375); Red Blood Count 4.85 M/mm3 (4.6-6.20); Red Cell Distribution Width 13.3 % (11.5-14.5); White Blood Count 6.1 K/mm3 (4.5-10.0)
[2023-02-12 10:44] LABS: Alanine Aminotransferase 29 U/L (6-50); Albumin Level 4.2 g/dL (3.5-5.1); Alkaline Phosphatase 85 U/L (38-126); Anion Gap 6 mmol/L (8-16); Aspartate Amino Transferase 35 U/L (17-59); Bilirubin,Total 1.1 mg/dL (0.2-1.3); Blood Urea Nitrogen 12 mg/dL (9-20); Carbon Dioxide 27 mmol/L (22-30); Chloride 103 mmol/L (98-107); Cholesterol 175 mg/dL (0-200); Estimated Glomerular Filt Rate > 60; Glucose 146 mg/dL (65-110); HDL Direct 51 mg/dL; Potassium 4.2 mmol/L (3.4-5.0); Sodium 136 mmol/L (137-145); Triglycerides 86 mg/dL (<150)
[2023-02-12 10:56] LABS: LDL Cholesterol Direct 101 mg/dL
[2023-02-12 11:00] LABS: Hemoglobin A1C 5.9 % (<5.7)
[2023-02-12 11:16] LABS: Prostate Specific Antigen 0.6 ng/mL (< OR = 4.0)
[2023-02-12 14:49] LABS: Appearance Urine Clear (Clear); Bilirubin Urine Negative (Negative); Blood Urine Negative (Negative); Color Urine Yellow (Yellow); Glucose Urine UA Negative (Negative); Ketones Urine Negative (Negative); Leukocyte Esterase Ur Negative LEU/UL (NEGATIVE); Nitrate Urine Negative (Negative); Protein Urine Negative (Negative); Urobilinogen Urine 0.2 mg/dL (<2.0)
[2023-02-12 14:51] LABS: Add Urine Microscopic? NO
== END 2023-02-12 09:32 | disposition home or self-care (01) ==
LOC: ANHLAB 09:34
PROVIDERS: PCP Family Medicine; Visit Provider Family Medicine
DX: R35.1 Nocturia (principal); E78.2 Mixed hyperlipidemia; I10 Essential (primary) hypertension; R73.01 Impaired fasting glucose
CPT/HCPCS: 36415; 80053; 80061; 81003; 83036; 84153; 84443; 85027

== ENCOUNTER 2023-04-25 14:36 | Outpatient (NON) | payer MEDICARE, SELFPAY | END 2023-04-25 14:37 | disposition home or self-care (01) | PROVIDERS: PCP Family Medicine; Visit Provider Nurse Practitioner | DX: L57.0 Actinic keratosis (principal) | CPT/HCPCS: 88305 ==

== ENCOUNTER 2023-08-20 09:14 | Outpatient (CLI) | payer MEDICARE, SELFPAY ==
[2023-08-20 10:03] LABS: Alanine Aminotransferase 28 U/L (6-50); Albumin Level 4.3 g/dL (3.5-5.1); Alkaline Phosphatase 84 U/L (38-126); Anion Gap 7 mmol/L (4-12); Aspartate Amino Transferase 32 U/L (17-59); Blood Urea Nitrogen 14 mg/dL (9-20); Calcium 9.2 mg/dL (8.4-10.2); Carbon Dioxide 24 mmol/L (22-30); Chloride 106 mmol/L (98-107); Estimated Glomerular Filt Rate > 60; Glucose 148 mg/dL (65-110); Potassium 4.2 mmol/L (3.4-5.0); Sodium 137 mmol/L (137-145)
== END 2023-08-20 09:15 | disposition home or self-care (01) ==
LOC: ANHLAB 09:18
PROVIDERS: PCP Family Medicine; Visit Provider Family Medicine
DX: R73.01 Impaired fasting glucose (principal); I10 Essential (primary) hypertension
CPT/HCPCS: 36415; 80053; 83036

== ENCOUNTER 2023-08-30 02:53 | Day surgery (SDC) | payer MEDICARE, SELFPAY ==
--- NOTE | 2023-08-25 14:56 | PM.IMHP ---
H&P: HPI History of Present Illness Date/Time: 08/25/23 14:56 Chief Complaint: urge incontinence Narrative: InterStim device in place since 2017. Device nearing end of service. Desires battery replacement Review of Systems Review of Systems: All systems reviewed & are unremarkable except as noted in HPI and below PMFSH Past Medical History Medical History Hemoglobin A1c less than 7.0% 10/13/19 A1c was 5.9 History of actinic keratoses History of skin cancer IFG (impaired fasting glucose) Surgical History Surgical History Arthritis of right acromioclavicular joint Distal clavicle excision July 30, 2022 Bone spur Spine H/O repair of rotator cuff Right History of elbow surgery Right 2000 History of knee replacement 2003 Dr. Topete-Dr. 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 - 54YRS Alcohol intake: current Drinks per week: 30 Alcohol use details: 30PK BEER/WEEK Substance use: never Substance use type: does not use Lack of Transportation: No Lack of Food: Never True Current Housing: I Have Housing Concerned About Future Housing: No Difficulty Paying Gas/Electric Bills: No Difficulty Paying for Meds: No Currently Unemployed: No Education: High School Diploma/GED Difficulty w/ Childcare or Family Care: No Living arrangements: with family Additional living arrangements comments: Yandy Yap Occupation/Education: occupation 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 Gender identity (if verbalized by the patient): Male Sexual Orientation (if Verbalized by the Patient): Straight or Heterosexual Spiritual care concerns: No Meds Home Medications and Allergies Home Medications Medication Instructions Recorded Confirmed Type aspirin 81 mg tablet,delayed 81 mg PO DAILY 04/10/19 02/20/23 History release magnesium 250 mg tablet 250 mg PO BID 04/10/19 02/20/23 History vitamin B complex 1 tablet PO DAILY 04/10/19 02/20/23 History vitamin E 268 mg (400 unit) capsule 800 unit PO QAM 04/10/19 02/20/23 History glucosamine sulfate 500 mg tablet 500 mg PO BID 06/23/19 02/20/23 History (Glucosamine) multivitamin 1 tablet PO DAILY 06/23/19 02/20/23 History alpha lipoic acid 600 mg tablet 600 mg PO BID 07/23/22 02/20/23 History mecobalamin-levomefolate 1 tablet PO BID 07/23/22 02/20/23 History calcium-pyridoxal phos 3 mg-35 mg-2 mg tablet potassium gluconate 600 mg (99 mg) 600 mg PO QAM 07/23/22 02/20/23 History tablet tamsulosin 0.4 mg capsule 0.4 mg PO HS 07/23/22 02/20/23 History chondroitin sulfate A sodium 400 1,200 mg PO DAILY 07/24/22 02/20/23 History mg capsule ibuprofen 200 mg tablet 200 mg PO Q6H PRN 08/15/22 02/20/23 History atenolol 25 mg tablet See Rx Instructions .Route 04/30/23 Rx .COMPLEX #90 tabs alprazolam 0.5 mg tablet (Xanax) 0.5 mg PO DAILY PRN anxiety #30 08/05/23 Rx tabs Allergies Allergy/AdvReac Type Severity Reaction Status Date / Time No Known Allergies Allergy Verified 02/20/23 08:25 Exam Narrative: no acute distress normal breathing alert and oriented x3 Assessment and Plan Assessment and plan (1) Urge incontinence: Code(s): N39.41 - Urge incontinence Status: Acute
--- NOTE | 2023-08-28 08:45 | PC.NURSE ---
Report to the Outpatient Waiting Room, entrance under the green pavilion located off [facility], at time _0715 on date 08/30/23 . Planned Procedure Time: __914 . Time changes happen often and if your time is changed the preop area will call you the afternoon before. - You and your visitor will be asked to self-screen and do not enter if you have any COVID symptoms. - A mask is optional within the hospital at this time. Patients may have clear liquids (water, carbonated beverages, clear teas, apple juice) until 3 hours prior to surgery ( 6:15AM)with a maximum of 20 ounces. - No food from midnight until time of surgery - Infants may have breast milk until 4 hours before surgery, formula 6 hours prior to surgery. - Children will be allowed to drink immediately following surgery. If applicable, please bring a bottle or sippy cup to assist with drinking. Juice, water, soda, and popsicles are readily available. For infants on formula, please bring formula the day of surgery. Pacifiers are allowed. Take the following medications with a SIP of water the morning of surgery: __ALPRAZOLAM IF NEEDED DO NOT STOP ANY OF YOUR OTHER PRESCRIPTION MEDICATIONS PRIOR TO SURGERY ?EXCEPT THE FOLLOWING Medications to discontinue per physician PT STATES HAS STOPPED ALL VITAMINS AND SUPPLEMENTS AND ASPIRIN 7 DAYS AGO.LAST DOSE08/22/23 Date to take last dose Please no make-up, nail urdu, hairspray, perfume, deodorant, or body powder the day of surgery. No jewelry (including any body piercings) or valuables the day of surgery, leave them at home. Please take a shower or bath the night before, or the morning of, surgery with an antibacterial soap. Wear comfortable, loose fitting clothing. Children are encouraged to wear pajamas. - Jewelry must be removed prior to entering the operating room. Rings and piercings that are not removed may be cut off. - The hospital will not accept responsibility for valuables. - Please leave all valuables, including medications, at home the day of surgery. If you are going home after surgery, a licensed sweeper driver must drive you home. - NO public transportation without another adult if you receive anesthesia. - We recommend that an adult stay with you for 24 hours following discharge. - We also recommend that you do not drive, make important decision, drink alcoholic beverages, or take any drugs that were not prescribed by your health care provider for at least 24 hours after your discharge time. For Pediatric surgeries, we recommend two adults accompany the child home. Follow any additional instructions given to you from your surgeon. If you or anyone in your household have experienced Covid symptoms in the past week, please notify your surgeon or the nurse liaison at the phone number below for possible testing. Telephone instructions given to __PT and asked if any additional questions and then verbalized understanding. Patient advised to call surgeon office or pre surgery nurse liaison [phone] if any additional questions.
[2023-08-28 08:52] VITALS: BMI 35.9
--- NOTE | 2023-08-30 04:43 | WPDHPUPDATE1 ---
History and Physical Update Update Date/Time: 08/30/23 04:43 History and Physical has been reviewed, including an updated exam of the patient. There are NO changes in the patient's condition. Risks, benefits, and alternatives have been discussed and questions answered. Patient agrees to proceed with procedure.
[2023-08-30 08:32] VITALS: BP 144/72; PULSE 53; RESP 14; TEMP 36.2; O2SAT 99
[2023-08-30 08:40] VITALS: BP 163/94; PULSE 71; O2SAT 96
[2023-08-30 08:47] VITALS: BP 163/78; PULSE 66; O2SAT 96
[2023-08-30] MEDS: BUPIVACAINE/EPINEPHRINE 0.5% 50 ML VIAL 10 ML INFILTRATE (08:47)
[2023-08-30] MEDS: ceFAZolin SODIUM 1 GM VIAL (08:47)
[2023-08-30 08:52] VITALS: BP 158/79; PULSE 73; O2SAT 74
[2023-08-30 08:57] VITALS: BP 111/67; PULSE 68; RESP 20; O2SAT 94
--- NOTE | 2023-08-30 08:57 | W.PM.PROC2 ---
Procedure Note - Detailed Date of Procedure 08/30/23 Pre-op Diagnosis Urge incontinence Post-op Diagnosis Same Procedure Performed Exchanger neurostimulator battery, complex neurostimulator programming impedance check [id number], [id number] Surgeon Esequiel Zimmerman MD Capacitor Repairer None Anesthesia Local Indications He has InterStim device in place for urge incontinence. His battery is at end of service. He is here today for battery replacement. He did not want a full revision. He understands risks of bleeding, infection, need for future battery changes. He agrees to proceed. Findings Uncomplicated better change Description of Procedure His correctly identified. Informed consent obtained. From the operating room. He was placed in prone position. Lower back and buttock were prepped and draped sterile fashion. Time-out performed. I anesthetized the skin over the pulse generator. I incised the skin. I located the pulse generator. I explanted the pulse generator. I assured hemostasis. The new pulse generator was programmed. Appropriate connections were made. It was placed in the pocket. Impedances were checked and found to be normal. I irrigated out all wounds. I assured hemostasis. I closed subcu tissues with 2-0 Vicryl. Skin was closed with 4-0 Vicryl. He was awakened transferred to PACU in stable condition. Implants Neurostimulator battery Estimated Blood Loss 1 Pathology None sent Complications No immediate complications Condition Stable Disposition PACU
== END 2023-08-30 09:15 | disposition home or self-care (01) ==
PROVIDERS: PCP Family Medicine; Visit Provider Urology
PROC: (CPT 64590; principal; 2023-08-30 09:15)
DX: Z45.42 Encounter for adjustment and management of neurostimulator (principal); N39.41 Urge incontinence; Z72.0 Tobacco use; Z79.82 Long term (current) use of aspirin
CPT/HCPCS: 64590; C1767; C1787; J0690

== ENCOUNTER 2024-01-09 15:22 | Emergency (ER) | payer MEDICARE, SELFPAY ==
--- NOTE | 2024-01-09 15:23 | ED.MALEGU ---
HPI - Male Genitourinary General Chief complaint: Urogenital-Male Stated complaint: urinary issue Time Seen by Provider: 01/09/24 15:22 Source: patient Mode of arrival: ambulatory Limitations: no limitations History of Present Illness HPI Narrative: Dimitri is a 73-year-old male patient presenting to the clinic today with complaints of possible UTI. He reports for the past 2 days he has had burning with urination, frequency, and low urine output. He denies any fever, chills, abdominal pain, or low back pain. Related Data Home Medications Medication Instructions Recorded Confirmed aspirin 81 mg tablet,delayed 81 mg PO DAILY 04/10/19 01/09/24 release magnesium 250 mg tablet 250 mg PO BID 04/10/19 01/09/24 vitamin B complex 1 tablet PO DAILY 04/10/19 01/09/24 vitamin E 268 mg (400 unit) capsule 800 unit PO QAM 04/10/19 01/09/24 glucosamine sulfate 500 mg tablet 500 mg PO BID 06/23/19 01/09/24 (Glucosamine) multivitamin 1 tablet PO DAILY 06/23/19 01/09/24 alpha lipoic acid 600 mg tablet 600 mg PO BID 07/23/22 01/09/24 mecobalamin-levomefolate 1 tablet PO BID 07/23/22 01/09/24 calcium-pyridoxal phos 2 mg-3 mg-35 mg tablet potassium gluconate 600 mg (99 mg) 600 mg PO QAM 07/23/22 01/09/24 tablet tamsulosin 0.4 mg capsule 0.4 mg PO HS 07/23/22 01/09/24 chondroitin sulfate A sodium 400 1,200 mg PO DAILY 07/24/22 01/09/24 mg capsule ibuprofen 200 mg tablet 200 mg PO Q6H PRN Pain 08/15/22 01/09/24 Allergies Allergy/AdvReac Type Severity Reaction Status Date / Time No Known Allergies Allergy Verified 01/09/24 15:28 Review of Systems Review of Systems: Pertinent positives per HPI. Patient denies any fever, chills, rash, headache, visual changes, dizziness, cough, runny nose, sore throat, shortness of breath, chest pain, palpitations, nausea, vomiting, diarrhea, constipation, abdominal pain. PMFSH Past Medical History Medical History Hemoglobin A1c less than 7.0% 10/13/19 A1c was 5.9 History of actinic keratoses History of skin cancer IFG (impaired fasting glucose) Surgical History Surgical History Arthritis of right acromioclavicular joint Distal clavicle excision July 30, 2022 Bone spur Spine H/O repair of rotator cuff Right History of elbow surgery Right 2001 History of knee replacement 2003 Dr. Topete-Dr. Hernandez History of neck surgery 2004 History of surgery on arm Left arm-tendon transfer Impingement of right shoulder Acromioplasty July 30, 2022 Family History Family History Son Cancer Grandparent Heart disease Mother CHF (congestive heart failure) Social History Social History Smoking packs per day: 2 Smoking cigarettes per day: 40.0 Years smoked: 55 Smoking pack-years: 110.00 Smoking status: Former smoker Tobacco type: cigarettes Second hand tobacco smoke exposure: Yes Smoking end date: 04/29/22 Additional smoking assessment comments: STATES WAS SMOKING 2PK/DAY-THEN 1PK/MONTH-NOW OCCASSIONAL CIGARETTE - 55YRS Alcohol intake: current Drinks per week: 42 Alcohol use details: BEER Substance use: never Substance use type: does not use Lack of Transportation: No Lack of Food: Never True Current Housing: I Have Housing Concerned About Future Housing: No Difficulty Paying Gas/Electric Bills: No Difficulty Paying for Meds: No Currently Unemployed: No Education: High School Diploma/GED Difficulty w/ Childcare or Family Care: No Living arrangements: with family Additional living arrangements comments: Yandy Yap Occupation/Education: occupation 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
[2024-01-09 15:36] VITALS: BP 135/67; PULSE 74; RESP 14; TEMP 36.7; O2SAT 96
[2024-01-09 15:41] LABS: EDUAAPPEAR Cloudy; EDUABILI Negative (Negative); EDUABLOOD 3+ (Negative); EDUACOLOR1 Yellow; EDUAGLUCOSE Negative (Negative); EDUAKETONE Negative (Negative); EDUALEUKO 3+ (Negative); EDUANITRATE Positive (Negative); EDUAPROTEIN 1+ (Negative); EDUASPGRAVITY 1.015; EDUAUROBILI 0.2
== END 2024-01-09 15:46 | disposition home or self-care (01) ==
PROVIDERS: Emergency Provider Nurse Practitioner Family; PCP Family Medicine
DX: N30.01 Acute cystitis with hematuria (principal); B96.89 Other specified bacterial agents as the cause of diseases classified elsewhere; R73.01 Impaired fasting glucose; Z85.828 Personal history of other malignant neoplasm of skin; Z79.82 Long term (current) use of aspirin; Z87.891 Personal history of nicotine dependence
CPT/HCPCS: 81003; 87077; 87086; 87088; 87186; 99213; G0463

== ENCOUNTER 2024-01-10 23:30 | Observation (INO) | payer MEDICARE, SELFPAY ==
--- NOTE | ~2024-01-10 | XR_ITS ---
EXAMINATION: XR chest 1V portable DATE: 01/11/2024 00:38 INDICATION: Sepsis TECHNIQUE: frontal view of the chest was obtained. COMPARISON: Chest CT dated 08/31/2022 FINDINGS: Unchanged mild lingular atelectasis/scarring at the lateral left lung base. No other airspace opaciti es, pulmonary edema, pleural effusion or pneumothorax. The cardiomediastinal silhouette is normal. Pl ate and screw fixation for lower cervical anterior spinal fusion. IMPRESSION: 1. Unchanged mild lingular atelectasis/scarring. Reviewed, dictated and finalized at location A.
[2024-01-10 23:40] VITALS: BP 127/65; PULSE 117; RESP 22; TEMP 36.9; O2SAT 95
[2024-01-10 23:53] LABS: Glucose Point of Care 230 mg/dl (65-105)
[2024-01-10 23:54] VITALS: BP 125/61; PULSE 114; RESP 25; TEMP 38.9; O2SAT 92
[2024-01-10 23:56] VITALS: PULSE 113; RESP 23; O2SAT 92
[2024-01-10 23:59] VITALS: PULSE 113
[2024-01-11] VITALS (33 sets, daily range): BP systolic 97–127; BP diastolic 51–68; PULSE 71–112; RESP 13–34; TEMP 36.3–37.5; O2SAT 90–98; BMI 36.5
--- NOTE | 2024-01-11 | ECHO_ITS ---
Patient Info Name: Dimitri Yap Age: 73 years : 1950 Gender: Male Ht: 70 in Wt: 254 lbs BSA: 2.43 m2 HR: 71 bpm BP: 97 / 53 mmHg Heart Rhythm: Sinus Rhythm Technical Quality: Fair Exam Date: 01/11/2024 12:57 PM Exam Location: Echo Lab Patient Status: Inpatient Admit Date: 01/11/2024 Staff Ordering Physician: Luis Bee MD [employer] Specialist: Nisa Jennings RDCS Attending Provider: Chaya Chairez MD Exam Type: CA echo doppler color flow Study Info Indications - elevated troponin Complete two-dimensional, color flow and Doppler transthoracic echocardiogram is performed. Summary 1. Complete two-dimensional, color flow and Doppler transthoracic echocardiogram is performed. 2. Left ventricular chamber dimension is normal. 3. Left ventricular systolic function is normal, estimated at 60-65%. 4. The left ventricular diastolic function is grade I diastolic dysfunction. 5. E/e' 11 is mildly elevated. 6. There is mild aortic valve sclerosis. 7. The mitral valve has mildly calcified annulus. 8. There is mild tricuspid valve regurgitation. 9. No pulmonary hypertension, estimated pulmonary arterial systolic pressure is 36 mmHg. Left Ventricle E/e' 11 is mildly elevated. Left ventricular chamber dimension is normal. Left ventricular systolic function is normal, estimated at 60-65%. The left ventricular diastolic function is grade I diastolic dysfunction. Right Ventricle Right ventricular systolic function is normal and with normal TAPSE 4.5 cm. Right ventricular chamber dimension is normal. Left Atria Left atrial chamber dimension is normal. Right Atria Right atrial chamber dimension is normal. Aortic Valve The aortic valve is trileaflet. There is mild aortic valve sclerosis. There is no aortic valve stenosis. There is no aortic valve regurgitation. Pulmonic Valve There is no pulmonic regurgitation. Mitral Valve The mitral valve has mildly calcified annulus. There is no mitral valve stenosis. There is no mitral valve regurgitation. Tricuspid Valve There is mild tricuspid valve regurgitation. No pulmonary hypertension, estimated pulmonary arterial systolic pressure is 36 mmHg. Pericardium/Pleural There is no pericardial effusion. Inferior Vena Cava Normal inferior vena cava with >50% collapse upon inspiration consistent with normal right atrial pressure, 5 mmHg. Aorta The aortic root size at the sinus of Valsalva is normal. Left Ventricular Outflow Tract Name Value Normal LVOT 2D LVOT Diameter 1.9 cm LVOT Doppler LVOT Peak Gradient 6 mmHg LVOT Mean Gradient 4 mmHg LVOT VTI 26 cm LVOT VTI/AV VTI Ratio 0.9 LVOT Stroke Volume 70 ml LVOT CO 5.9 l/min LVOT CI 2.4 l/min/m2 Pulmonic Valve Name Value Normal PV Doppler
--- NOTE | 2024-01-11 00:01 | ECG_ITS ---
Test Date: 2024-01-11 00:01:18 Measurements Intervals [place] Rate: 110 P: 41 KS: 155 QRS: -16 QRSD: 149 T: 14 QT: 334 QTc: 452 Interpretive Statements SINUS TACHYCARDIA RIGHT BUNDLE BRANCH BLOCK BASELINE ARTIFACT- I, II, III, AVR, AVL, AVF ABNORMAL ECG No previous ECG available for comparison Electronically Signed On 01-11-2024 07:57:59 CDT by Joseph Zapata D.O.
--- NOTE | 2024-01-11 00:01 | ED.SYNCOPE ---
HPI - Syncope General Chief Complaint: Syncope Stated Complaint: No strength, I think I passed out once, UTI Time Seen by Provider: 01/10/24 23:50 History of Present Illness HPI narrative: several days ago patient started having severe dysuria, was seen at urgent care and started on Bactrim, he has been taking it and overall dysuria may have been improving but he has been feeling worse, with fevers and chills and malaise and not being able to get out of bed. No flank pain but just feels body aches all over. Per he was sitting in bed today when he passed out very briefly. He denies any chest pain shortness of breath but does report a cough for the last day. Related Data Home Medications Medication Instructions Recorded Confirmed aspirin 81 mg tablet,delayed 81 mg PO DAILY 04/10/19 01/09/24 release magnesium 250 mg tablet 250 mg PO BID 04/10/19 01/09/24 vitamin B complex 1 tablet PO DAILY 04/10/19 01/09/24 vitamin E 268 mg (400 unit) capsule 800 unit PO QAM 04/10/19 01/09/24 glucosamine sulfate 500 mg tablet 500 mg PO BID 06/23/19 01/09/24 (Glucosamine) multivitamin 1 tablet PO DAILY 06/23/19 01/09/24 alpha lipoic acid 600 mg tablet 600 mg PO BID 07/23/22 01/09/24 mecobalamin-levomefolate 1 tablet PO BID 07/23/22 01/09/24 calcium-pyridoxal phos 2 mg-3 mg-35 mg tablet potassium gluconate 600 mg (99 mg) 600 mg PO QAM 07/23/22 01/09/24 tablet tamsulosin 0.4 mg capsule 0.4 mg PO HS 07/23/22 01/09/24 chondroitin sulfate A sodium 400 1,200 mg PO DAILY 07/24/22 01/09/24 mg capsule ibuprofen 200 mg tablet 200 mg PO Q6H PRN Pain 08/15/22 01/09/24 Allergies Allergy/AdvReac Type Severity Reaction Status Date / Time No Known Allergies Allergy Verified 01/09/24 15:28 Review of Systems Review of Systems: All systems reviewed & are unremarkable except as noted in HPI and below PMFSH Past Medical History Medical History Hemoglobin A1c less than 7.0% 10/13/19 A1c was 5.9 History of actinic keratoses History of skin cancer IFG (impaired fasting glucose) Surgical History Surgical History Arthritis of right acromioclavicular joint Distal clavicle excision July 30, 2022 Bone spur Spine H/O repair of rotator cuff Right History of elbow surgery Right 2001 History of knee replacement 2003 Dr. Topete-Dr. Hernandez History of neck surgery 2004 History of surgery on arm Left arm-tendon transfer Impingement of right shoulder Acromioplasty July 30, 2022 Family History Family History Son Cancer Grandparent Heart disease Mother CHF (congestive heart failure) Social History Social History Smoking packs per day: 2 Smoking cigarettes per day: 40.0 Years smoked: 55 Smoking pack-years: 110.00 Smoking status: Former smoker Tobacco type: cigarettes Second hand tobacco smoke exposure: Yes Smoking end date: 04/29/22 Additional smoking assessment comments: STATES WAS SMOKING 2PK/DAY-THEN 1PK/MONTH-NOW OCCASSIONAL CIGARETTE - 55YRS Alcohol intake: current Drinks per week: 42 Alcohol use details: BEER Substance use: never Substance use type: does not use Lack of Transportation: No Lack of Food: Never True Current Housing: I Have Housing Concerned About Future Housing: No Difficulty Paying Gas/Electric Bills: No Difficulty Paying for Meds: No Currently Unemployed: No Education: High School Diploma/GED Difficulty w/ Childcare or Family Care: No Living arrangements: with family Additional living arrangements comments: Yandy Yap Occupation/Education: occupation 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
[2024-01-11] MEDS: ACETAMINOPHEN 500 MG TABLET 1000 MG PO (00:02)
[2024-01-11] MEDS: LACTATED RINGERS 1,000 ML 999 ML IV CONT (00:02)
[2024-01-11 00:05] LABS: Basophils Percent Auto 0.1 % (0.2-1.2); Hematocrit 41.7 % (42.0-52.0); Hemoglobin 14.7 g/dL (14.0-18.0); Immature Granulocyte Absolute 0.05 K/mm3 (0.00-0.031); Immature Granulocyte Percent A 0.7 % (0-0.5); Lymphocytes Absolute Auto 0.25 K/mm3 (0.9-3.2); Lymphocytes Percent Auto 3.3 % (18.3-44.2); Mean Corpuscular HGB Conc 35.3 g/dl (32-36); Mean Corpuscular Hemoglobin 32.5 pg (26-34); Mean Corpuscular Volume 92.1 fl (80-100); Mean Platelet Volume 9.5 fl (7.4-10.4); Monocytes Absolute Auto 0.6 K/mm3 (0.1-0.6); Monocytes Percent Auto 8.2 % (2.6-8.5); Neutrophils Absolute Auto 6.6 K/mm3 (1.3-6.7); Neutrophils Percent Auto 87.7 % (45.5-73.1); Platelet Count Result 176 k/mm3 (150-375); Red Blood Count 4.53 M/mm3 (4.6-6.20); Red Cell Distribution Width 13.8 % (11.5-14.5); White Blood Count 7.5 K/mm3 (4.5-10.0)
[2024-01-11 00:14] LABS: Lactic Acid Reflex 2.1 mmol/L (0.7-2.0)
[2024-01-11 00:16] LABS: Alanine Aminotransferase 25 U/L (6-50); Albumin Level 3.9 g/dL (3.5-5.1); Alkaline Phosphatase 87 U/L (38-126); Anion Gap 13 mmol/L (4-12); Aspartate Amino Transferase 38 U/L (17-59); Bilirubin,Total 1.2 mg/dL (0.2-1.3); Blood Urea Nitrogen 20 mg/dL (9-20); Calcium 8.9 mg/dL (8.4-10.2); Carbon Dioxide 20 mmol/L (22-30); Chloride 104 mmol/L (98-107); Estimated CRCL calculation 61 ml/min; Estimated Glomerular Filt Rate 59; Glucose 219 mg/dL (65-110); Magnesium 1.6 mg/dL (1.6-2.3); Potassium 3.7 mmol/L (3.4-5.0); Sodium 137 mmol/L (137-145)
[2024-01-11] MEDS: cefTRIAXone 2 GM/NS 100 ML 2 GM/100 ML BAG IVPB (00:26)
[2024-01-11 01:13] LABS: Add Urine Microscopic? YES; Appearance Urine Cloudy (Clear); Bacteria Urine None Seen /hpf; Bilirubin Urine Negative (Negative); Blood Urine Trace (Negative); Color Urine Dark Yellow (Yellow); Glucose Urine UA Negative (Negative); Ketones Urine Trace mg/dL (Negative); Leukocyte Esterase Ur 3+ LEU/UL (Negative); Nitrate Urine Negative (Negative); Protein Urine 1+ mg/dL (Negative); RBC Urine 0-2 /hpf (0-2); Specific Grav Ur 1.021 (1.001-1.035); Squamous Epithelial Cell Urine Few /hpf (Few); WBC Urine >100 /hpf (0-3); pH Urine 5.5 (5.0-9.0)
--- NOTE | 2024-01-11 01:23 | PM.IMHP ---
H&P: HPI History of Present Illness Date/Time: 01/11/24 01:23 Chief Complaint: generalized weakness Narrative: This is a 73-year-old male with past medical history significant for degenerative joint disease, type diabetes mellitus, benign prostatic hyperplasia. patient presented to the emergency room due to generalized weakness, fevers, chills, pain and burning with urination, poor per orally intake body aches and pains. patient had been to the urgent care and prescribed antibiotics however he did not improve. Preliminary workup was significant for urinalysis with numerous WBCs present EXAMINATION: XR chest 1V portable DATE: 01/11/2024 00:38 INDICATION: Sepsis TECHNIQUE: frontal view of the chest was obtained. COMPARISON: Chest CT dated 08/31/2022 FINDINGS: Unchanged mild lingular atelectasis/scarring at the lateral left lung base. No other airspace opacities, pulmonary edema, pleural effusion or pneumothorax. The cardiomediastinal silhouette is normal. Plate and screw fixation for lower cervical anterior spinal fusion. IMPRESSION: 1. Unchanged mild lingular atelectasis/scarring. Review of Systems Review of Systems: Generalized weakness, pain and burning with urination, chills, fevers, poor per orally intake, poor appetite PMFSH Past Medical History Medical History (Updated 01/11/24 @ 11:41 by Luis Bee MD) Diabetes mellitus Hemoglobin A1c less than 7.0% 10/13/19 A1c was 5.9 History of actinic keratoses History of skin cancer IFG (impaired fasting glucose) Surgical History Surgical History Arthritis of right acromioclavicular joint Distal clavicle excision July 30, 2022 Bone spur Spine H/O repair of rotator cuff Right History of elbow surgery Right 2000 History of knee replacement 2003 Dr. Topete-Dr. Hernandez History of neck surgery 2003 History of surgery on arm Left arm-tendon transfer Impingement of right shoulder Acromioplasty July 30, 2022 Family History Family History Son Cancer Grandparent Heart disease Mother CHF (congestive heart failure) Social History Social History Smoking packs per day: 1.5 Smoking cigarettes per day: 30.0 Years smoked: 70 Smoking pack-years: 105.00 Smoking status: Former smoker Tobacco type: cigarettes Second hand tobacco smoke exposure: Yes Smoking end date: 04/29/22 Additional smoking assessment comments: STATES WAS SMOKING 2PK/DAY-THEN 1PK/MONTH-NOW OCCASSIONAL CIGARETTE - 55YRS Alcohol intake: current Drinks per week: 56 Alcohol use details: BEER Substance use: never Substance use type: does not use Do You Feel Safe in your Home?: Yes Lack of Transportation: No Lack of Food: Never True Current Housing: I Have Housing Concerned About Future Housing: No Difficulty Paying Gas/Electric Bills: No Difficulty Paying for Meds: No Currently Unemployed: No Education: High School Diploma/GED Difficulty w/ Childcare or Family Care: No Living arrangements: with family Additional living arrangements comments: Yandy Yap Occupation/Education: occupation 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
[2024-01-11 01:40] LABS: Troponin I 0.088 ng/mL (0.000-0.034)
[2024-01-11] MEDS: AZITHROMYCIN 500 MG/NS 250 ML 500 MG/250 ML BAG 250 MG IVPB (01:44)
--- NOTE | 2024-01-11 02:56 | ADMGEN ---
This patient, Dimitri Yap, was admitted to IMU Room 212-01. Patient/family oriented to hospital policies and general routines including ID bracelet, bed and alarms, visiting hours, pain management, procedures, bathroom and other care routines, personal items, smoking policy, room service/diet, and visiting hours. Information on how to activate the Rapid Response Team has been discussed. Patient/Family are encouraged to report perceived risks to care and to ask questions if they do not understand what they are told or what they should do.
[2024-01-11 03:00] LABS: Reflex Lactic Acid Yes or No Add Lactic
[2024-01-11 03:04] LABS: Influenza A QL RT-PCR Negative (Negative); Influenza B QL RT-PCR Negative (Negative); RSV RNA, RT-PCR Negative (Negative); SARS-CoV-2 RNA PCR Negative (Negative)
[2024-01-11 04:41] LABS: Lactic Acid 1.3 mmol/L (0.7-2.0)
[2024-01-11] MEDS: MAGNESIUM 13.5 MG TABLET (250 MG MAG GLUCONATE) PO (08:52)
[2024-01-11] MEDS: VITAMIN E 400 UNIT CAPSULE 800 UNIT PO (08:52)
[2024-01-11] MEDS: MULTIVITAMINS THERAPEUTIC TAB (*BKC) 1 TABLET PO (08:52)
[2024-01-11] MEDS: ACETAMINOPHEN 325 MG TABLET 650 MG PO ×2 (08:52→19:26)
[2024-01-11] MEDS: VITAMIN B COMPLEX CAPSULE 1 CAP PO (08:52)
[2024-01-11 09:26] LABS: Basophils Percent Auto 0.3 % (0.2-1.2); Hematocrit 43.8 % (42.0-52.0); Hemoglobin 14.7 g/dL (14.0-18.0); Immature Granulocyte Absolute 0.05 K/mm3 (0.00-0.031); Immature Granulocyte Percent A 0.7 % (0-0.5); Lymphocytes Absolute Auto 0.28 K/mm3 (0.9-3.2); Lymphocytes Percent Auto 3.8 % (18.3-44.2); Mean Corpuscular HGB Conc 33.6 g/dl (32-36); Mean Corpuscular Hemoglobin 31.9 pg (26-34); Mean Platelet Volume 9.4 fl (7.4-10.4); Monocytes Absolute Auto 0.5 K/mm3 (0.1-0.6); Monocytes Percent Auto 7.2 % (2.6-8.5); Neutrophils Absolute Auto 6.5 K/mm3 (1.3-6.7); Platelet Count Result 188 k/mm3 (150-375); Red Blood Count 4.61 M/mm3 (4.6-6.20); White Blood Count 7.3 K/mm3 (4.5-10.0)
[2024-01-11 09:41] LABS: Alanine Aminotransferase 33 U/L (6-50); Albumin Level 3.9 g/dL (3.5-5.1); Alkaline Phosphatase 71 U/L (38-126); Anion Gap 10 mmol/L (4-12); Aspartate Amino Transferase 49 U/L (17-59); Blood Urea Nitrogen 18 mg/dL (9-20); Calcium 8.6 mg/dL (8.4-10.2); Carbon Dioxide 25 mmol/L (22-30); Chloride 104 mmol/L (98-107); Estimated CRCL calculation 73 ml/min; Estimated Glomerular Filt Rate > 60; Glucose 95 mg/dL (65-110); Magnesium 1.9 mg/dL (1.6-2.3); Phosphorus 3.1 mg/dL (2.5-4.5); Potassium 3.8 mmol/L (3.4-5.0); Sodium 139 mmol/L (137-145)
[2024-01-11 09:54] LABS: Troponin I 0.175 ng/mL (0.000-0.034)
--- NOTE | 2024-01-11 11:34 | PM.IMPN ---
Progress Note: A&P Assessment and Plan (1) Sepsis: Code(s): A41.9 - Sepsis, unspecified organism Status: Acute Assessment and Plan: Patient presents fever chills. Lactic acid elevated minor metabolic acidosis. White count normal. UA consistent with UTI. Chest x-ray shows unchanged mild lingular atelectasis or scarring. Blood and urine cultures were collected. Urine culture from 01/08 showing Gram-negative bacilli. Patient started on Rocephin and azithromycin. Continue Rocephin. Follow-up on cultures. (2) Elevated troponin: Code(s): R79.89 - Other specified abnormal findings of blood chemistry Status: Acute Assessment and Plan: Troponin checked for unclear reasons but probably from brief episode of syncope. No CP. EKG showing sinus tachycardia (110), Rt BBB. Troponin 0.088 -> 0.175. Probably related to sepsis. Trend Trop. Check Echo. Add ASA Recommend stress test at the end of his hospitalization or as outpatient. (3) Acute UTI: Code(s): N39.0 - Urinary tract infection, site not specified Status: Acute Assessment and Plan: As above (4) Diabetes mellitus: Code(s): E11.9 - Type 2 diabetes mellitus without complications Status: Acute Assessment and Plan: The patient's blood glucose was reviewed on 01/10 Glucose was elevated on admission related to sepsis Continue AccuCheks covering with sliding scale. Hypoglycemia protocol available as needed. Contineu to monitor (5) HTN (hypertension): Qualifiers: Hypertension type: essential hypertension Qualified Code(s): I10 - Essential (primary) hypertension Code(s): I10 - Essential (primary) hypertension Status: Acute Assessment and Plan: Patient's blood pressure was reviewed on 01/10 Blood pressure remains soft at times. Will continue current medications but place parameters. (6) Lung infiltrate: Code(s): R91.8 - Other nonspecific abnormal finding of lung field Status: Acute Assessment and Plan: CXR results noted and felt to be atelectasis or scarring Stop Azithro Plan DVT Prophylaxis - Lovenox Code status - Full Subjective Date/time seen: 01/11/24 11:34 Interval history: 73yo male with HTN, DM and BPH here for generalized weakness. Patietn still feels weak. Complains of headache. Having frequent loose stools. no hx of CDiff. Complains of dysuria. No hematuria, melana or hematochezia. no Cp or palpitations. No CP with activity prior to admission. Last stress test in Apr 2020 was negative. Was having fevers and shaking chills at home. Exam Narrative: Tm 102.1 97.8 97/57 71 16 96% ra Gen - NARD walking around in his room Chest - left base inspiratory crackles o/w clear. nml RR CV - RRR S1/S2. Tele showing no significant dysrhythmias. Abd - Soft, NT/ND, Positive BS Ext -trace pedal edema. 1+ PT pulses Psych - Nml mood and affect Skin - Warm and dry Objective Data Vital Signs Vital Signs: Vital Signs - 24 hr 01/10/24 23:40 01/10/24 23:54 01/10/24 23:59 Temperature 98.4 F 102.1 F H Pulse Rate 117 H 114 H 113 H Respiratory Rate 22 H 25 H Blood Pressure 127/65 125/61 Pulse Oximetry 95 92 Oxygen Delivery Room Air 01/10/24 23:56 01/11/24 00:00 01/11/24 00:01 Temperature Pulse Rate 113 H 111 H 112 H Respiratory Rate 23 H 17 26 H Blood Pressure 116/60 Pulse Oximetry 92 91 92 Oxygen Delivery 01/11/24 00:15 01/11/24 00:16 01/11/24 00:17 Temperature Pulse Rate 112 H 112 H 112 H Respiratory Rate 29 H 18 27 H Blood Pressure 119/68 127/66 Pulse Oximetry Oxygen Delivery 01/11/24 00:30 01/11/24 00:31 01/11/24 00:45 Temperature Pulse Rate 110 H 111 H 111 H Respiratory Rate 19 16 17 Blood Pressure 111/51 L Pulse Oximetry 93 94 94 Oxygen Delivery 01/11/24 01:00 01/11/24 01:02 01/11/24 01:01 Temperature 98.5 F 98.5 F Pulse Rate 108 H
[2024-01-11 11:52] LABS: Glucose Point of Care 127 mg/dl (65-105)
[2024-01-11] MEDS: ASPIRIN 81 MG CHEWABLE TABLET PO (13:13)
[2024-01-11] MEDS: ACIDOPHILUS/BULGARICUS CHEWABLE TABLET 1 TABLET PO ×3 (13:13→20:17)
[2024-01-11 13:27] LABS: Troponin I 0.124 ng/mL (0.000-0.034)
[2024-01-11 15:48] LABS: Glucose Point of Care 113 mg/dl (65-105)
[2024-01-11] MEDS: atenoloL 25 MG TABLET BY MOUTH (20:17)
[2024-01-11] MEDS: TAMSULOSIN HCL 0.4 MG CAPSULE PO (20:17)
[2024-01-11 21:11] LABS: Glucose Point of Care 139 mg/dl (65-105)
[2024-01-12] VITALS (15 sets, daily range): BP systolic 110–124; BP diastolic 55–66; PULSE 63–93; RESP 18; TEMP 36.6–36.9; O2SAT 96–97
[2024-01-12] MEDS: cefTRIAXone 2 GM/NS 100 ML 2 GM/100 ML BAG IVPB (00:14)
[2024-01-12 04:47] LABS: Hematocrit 41.1 % (42.0-52.0); Mean Corpuscular HGB Conc 34.1 g/dl (32-36); Mean Corpuscular Hemoglobin 31.6 pg (26-34); Mean Corpuscular Volume 92.8 fl (80-100); Mean Platelet Volume 9.4 fl (7.4-10.4); Platelet Count Result 184 k/mm3 (150-375); Red Blood Count 4.43 M/mm3 (4.6-6.20); White Blood Count 5.6 K/mm3 (4.5-10.0)
[2024-01-12 04:59] LABS: Anion Gap 7 mmol/L (4-12); Blood Urea Nitrogen 17 mg/dL (9-20); CRP 8.5 mg/dL (<1.0); Calcium 8.4 mg/dL (8.4-10.2); Carbon Dioxide 26 mmol/L (22-30); Chloride 104 mmol/L (98-107); Estimated CRCL calculation 90 ml/min; Estimated Glomerular Filt Rate > 60; Glucose 134 mg/dL (65-110); Potassium 3.9 mmol/L (3.4-5.0); Sodium 137 mmol/L (137-145)
[2024-01-12 08:05] LABS: Glucose Point of Care 143 mg/dl (65-105)
[2024-01-12] MEDS: VITAMIN B COMPLEX CAPSULE 1 CAP PO (08:56)
[2024-01-12] MEDS: MAGNESIUM 13.5 MG TABLET (250 MG MAG GLUCONATE) PO (08:56)
[2024-01-12] MEDS: ACIDOPHILUS/BULGARICUS CHEWABLE TABLET 1 TABLET PO ×4 (08:56→20:38)
[2024-01-12] MEDS: ASPIRIN 81 MG CHEWABLE TABLET PO (08:56)
[2024-01-12] MEDS: VITAMIN E 400 UNIT CAPSULE 800 UNIT PO (08:56)
[2024-01-12] MEDS: MULTIVITAMINS THERAPEUTIC TAB (*BKC) 1 TABLET PO (08:56)
[2024-01-12] MEDS: ACETAMINOPHEN 325 MG TABLET 650 MG PO (10:47)
[2024-01-12 11:34] LABS: Glucose Point of Care 125 mg/dl (65-105)
--- NOTE | 2024-01-12 13:46 | PCOTNOTE ---
Spoke with pt. and nursing who confirm pt. is independent in room, PT evaluation also confirms. pt. declines need for OT services. Canceling order.
[2024-01-12 16:48] LABS: Glucose Point of Care 167 mg/dl (65-105)
--- NOTE | 2024-01-12 16:52 | PM.IMPN ---
Progress Note: A&P Assessment and Plan (1) Sepsis: Code(s): A41.9 - Sepsis, unspecified organism Status: Acute Assessment and Plan: Patient was seen in the ED on 01/08. He was diagnosed with UTI and discharged on Bactrim. he returned to the ED 01/09 for worsening symptoms. Patient presents with fever and chills. Lactic acid elevated with minor metabolic acidosis. White count normal. UA consistent with UTI. Chest x-ray shows unchanged mild lingular atelectasis or scarring. Patient started on Rocephin and azithromycin after cultures were collected. UCx 01/08 growing Citrobacter Koseri that is pansensitive. BCx NGTD UCx 01/10 pending Bactrim should have covered the Citrobacter. Continue Rocephin until UCx from 01/10 is known. Follow-up on cultures. (2) Elevated troponin: Code(s): R79.89 - Other specified abnormal findings of blood chemistry Status: Acute Assessment and Plan: Troponin checked since patient had a brief syncopal episode. No CP. EKG showing sinus tachycardia (110), Rt BBB. Troponin peaked at 0.175. Probably related to sepsis. Echo showing EF 60-65%, Grade I diastolic dysfunction but no wall motion abnormalities. Recommend stress test at the end of his hospitalization or as outpatient. (3) Acute UTI: Code(s): N39.0 - Urinary tract infection, site not specified Status: Acute Assessment and Plan: As above (4) Diabetes mellitus: Code(s): E11.9 - Type 2 diabetes mellitus without complications Status: Acute Assessment and Plan: The patient's blood glucose was reviewed on 01/11 Glucose was elevated on admission related to sepsis but better now Continue AccuCheks covering with sliding scale. Hypoglycemia protocol available as needed. Continue to monitor (5) HTN (hypertension): Qualifiers: Hypertension type: essential hypertension Qualified Code(s): I10 - Essential (primary) hypertension Code(s): I10 - Essential (primary) hypertension Status: Acute Assessment and Plan: Patient's blood pressure was reviewed on 01/11 Blood pressure good control Will continue current medications (6) Lung infiltrate: Code(s): R91.8 - Other nonspecific abnormal finding of lung field Status: Acute Assessment and Plan: CXR results noted and felt to be atelectasis or scarring Azithro stopped Plan DVT Prophylaxis - Lovenox Code status - Full Subjective Date/time seen: 01/12/24 16:52 Interval history: 73yo male with HTN, DM and BPH here for generalized weakness. Feels well. Walking to the BR. Exam Narrative: AF 98.2 124/66 82 18 97% ra Gen - NARD Chest - CTA bilaterally, nml RR CV - RRR S1/S2. Tele showing no significant dysrhythmias. Abd - Soft, NT/ND, Positive BS Ext - no pedal edema. 1+ PT pulses Psych - Nml mood and affect Skin - Warm and dry Objective Data Vital Signs Vital Signs: Vital Signs - 24 hr 01/11/24 17:55 01/11/24 20:17 01/11/24 20:00 Temperature 99 F Pulse Rate 95 93 88 Respiratory Rate 18 Blood Pressure 125/57 L Pulse Oximetry 95 Oxygen Delivery 01/11/24 20:10 01/11/24 20:00 01/11/24 22:00 Temperature Pulse Rate 93 88 78 Respiratory Rate 18 Blood Pressure Pulse Oximetry 95 Oxygen Delivery Room Air 01/12/24 00:00 01/12/24 00:40 01/12/24 00:00 Temperature 98.1 F Pulse Rate 67 67 63 Respiratory Rate 18 18 Blood Pressure 110/60 Pulse Oximetry 96 96 Oxygen Delivery Room Air 01/12/24 02:00 01/12/24 04:00 01/12/24 04:00 Temperature 98.5 F Pulse Rate 80 76 74 Respiratory Rate 18 Blood Pressure 119/60 Pulse Oximetry 97 Oxygen Delivery 01/12/24 04:00 01/12/24 06:00 01/12/24 07:40 Temperature 98.3 F Pulse Rate 74 75 75 Respiratory Rate 18 18 Blood Pressure 114/65 Pulse Oximetry 97 97 Oxygen Delivery Room Air 01/12/24 08:00 01/12/24 08:00
[2024-01-12] MEDS: ENOXAPARIN 40 MG/0.4 ML SYRINGE SUB-Q (17:59)
[2024-01-12] MEDS: TAMSULOSIN HCL 0.4 MG CAPSULE PO (20:38)
[2024-01-12 20:39] LABS: Glucose Point of Care 127 mg/dl (65-105)
[2024-01-12] MEDS: atenoloL 25 MG TABLET BY MOUTH (20:39)
[2024-01-13] VITALS (7 sets, daily range): BP systolic 111–136; BP diastolic 43–74; PULSE 62–81; RESP 18; TEMP 36.4–36.7; O2SAT 95–100
[2024-01-13] MEDS: cefTRIAXone 2 GM/NS 100 ML 2 GM/100 ML BAG IVPB (00:52)
[2024-01-13 07:32] LABS: Glucose Point of Care 130 mg/dl (65-105)
[2024-01-13] MEDS: ALPRAZolam (*CRX) 0.5 MG TABLET PO (08:11)
[2024-01-13] MEDS: ASPIRIN 81 MG CHEWABLE TABLET PO (08:11)
[2024-01-13] MEDS: ENOXAPARIN 40 MG/0.4 ML SYRINGE SUB-Q (08:11)
[2024-01-13] MEDS: VITAMIN B COMPLEX CAPSULE 1 CAP PO (08:12)
[2024-01-13] MEDS: MULTIVITAMINS THERAPEUTIC TAB (*BKC) 1 TABLET PO (08:12)
[2024-01-13] MEDS: MAGNESIUM 13.5 MG TABLET (250 MG MAG GLUCONATE) PO (08:12)
[2024-01-13] MEDS: VITAMIN E 400 UNIT CAPSULE 800 UNIT PO (08:12)
[2024-01-13] MEDS: ACIDOPHILUS/BULGARICUS CHEWABLE TABLET 1 TABLET PO ×3 (08:12→16:53)
[2024-01-13 11:19] LABS: Glucose Point of Care 125 mg/dl (65-105)
[2024-01-13 16:19] LABS: Glucose Point of Care 138 mg/dl (65-105)
--- NOTE | 2024-01-13 17:53 | PM.DS ---
DS: Admitting Diagnosis Discharge Date 01/13/24 Admitting Diagnosis Generalized weakness. DS: Discharge Diagnosis Discharge Diagnosis (1) Sepsis: Code(s): A41.9 - Sepsis, unspecified organism Status: Acute (2) Elevated troponin: Code(s): R79.89 - Other specified abnormal findings of blood chemistry Status: Acute (3) Acute UTI: Code(s): N39.0 - Urinary tract infection, site not specified Status: Acute (4) Diabetes mellitus: Code(s): E11.9 - Type 2 diabetes mellitus without complications Status: Acute (5) HTN (hypertension): Qualifiers: Hypertension type: essential hypertension Qualified Code(s): I10 - Essential (primary) hypertension Code(s): I10 - Essential (primary) hypertension Status: Acute (6) Lung infiltrate: Code(s): R91.8 - Other nonspecific abnormal finding of lung field Status: Acute DS: Summary Hospital Course Reason for hospitalization: 73yo male with HTN, DM and BPH here for generalized weakness. Please see H&P for details. Hospital Course: Patient was seen in the ED on 01/08. He was diagnosed with UTI and discharged on Bactrim. he returned to the ED 01/09 for worsening symptoms. Patient presents with fever and chills. Lactic acid elevated with minor metabolic acidosis. White count normal. UA consistent with UTI. Chest x-ray shows unchanged mild lingular atelectasis or scarring. Patient started on Rocephin and azithromycin after cultures were collected. Azithromycin stopped since felt unlikely this was PNA. UCx 01/08 growing Citrobacter Koseri that is pansensitive. BCx NGTD. UCx 01/10 still pending. Bactrim should have covered the Citrobacter. Troponin checked since patient had a brief syncopal episode. No CP. EKG showing sinus tachycardia (110), Rt BBB. Troponin peaked at 0.175. Probably related to sepsis. Echo showing EF 60-65%, Grade I diastolic dysfunction but no wall motion abnormalities. Recommend stress test as outpatient. He overall did well and was able to be discharged home on 01/13/24. Status at Discharge Cognitive/behavioral status at discharge: stable Time Spent with Patient Time attestation: Total time spent providing and/or coordinating discharge services: 35 minutes Time spent: Greater than 30 minutes Exam Narrative: AF 98.1 127/68 74 18 95% ra Gen - NARD Chest - CTA bilaterally, nml RR CV - RRR S1/S2. Tele showing no significant dysrhythmias. Abd - Soft, NT/ND, Positive BS Ext - no pedal edema Psych - Nml mood and affect Skin - Warm and dry DS: Data Data Completed and Pending Labs on day of discharge: Labs from last 24 hours 01/13/24 01/13/24 01/13/24 16:10 10:55 07:22 POC Capillary Glucose 138 H 125 H 130 H 01/12/24 20:19 POC Capillary Glucose 127 H Preliminary micro results at discharge 01/11/24 00:29 Blood Culture - Preliminary Blood 01/11/24 00:20 Blood Culture - Preliminary Blood Discharge Plan Discharge Attending physician on discharge: Luis Bee Discharging Clinician: Luis Bee Anticipated Discharge Date/Time: 01/13/24 17:58 Patient Disposition: Home, Self-Care Activity: as tolerated Diet: diabetic Discharge Instructions: You are being sent home with an antibiotic called Levofloxacin Start antibiotic on the morning on 01/13 and take for day. Please complete your antibiotic course even if you are starting to feel well. Stop the Trimethoprim/Sulfamethoxazole. Take precautions to avoid falls. Rise slowly from a lying or sitting position. Pause before standing or walking. Contact your doctor or call 911 and come to the Emergency Room if you have fevers or other worrisome symptoms. Avoid NSAIDs (ibuprofen, naproxen, Aleve). Tylenol is safe to take. Follow-up with your primary care provider in 1-2 weeks. Please call for appointment. -- Please discuss with your doctor about arrangi
--- NOTE | 2024-01-15 06:24 | PC.NURSE ---
Urine cx is negative.
--- NOTE | 2024-01-21 10:26 | PC.NURSE ---
Blood cx are negative. Dr. Cristal fernandez.
== END 2024-01-13 19:02 | disposition home or self-care (01) ==
LOC: ANHED 01-11 02:08 → ANHIMU 01-11 02:25
PROVIDERS: Admitting Provider Internal Medicine; Emergency Provider Emergency Medicine; PCP Family Medicine; Visit Provider Internal Medicine
DX: A41.9 Sepsis, unspecified organism (principal); N39.0 Urinary tract infection, site not specified; R79.89 Other specified abnormal findings of blood chemistry; R91.8 Other nonspecific abnormal finding of lung field; E11.51 Type 2 diabetes mellitus with diabetic peripheral angiopathy without gangrene; N40.0 Benign prostatic hyperplasia without lower urinary tract symptoms; Z79.82 Long term (current) use of aspirin; Z87.891 Personal history of nicotine dependence; Z20.822 Contact with and (suspected) exposure to COVID-19
CPT/HCPCS: 36415; 71045; 80048; 80053; 81001; 82948; 83036; 83605; 83735; 84100; 84443; 84484; 85025; 85027; 86140; 87040; 87086; 87637; 93005; 93306; 96365; 96366; 96367; 96372; 97161; 99285; A9270; G0378; J0456; J0696; J1650; J7120

== ENCOUNTER 2024-01-21 09:19 | Outpatient (CLI) | payer MEDICARE, SELFPAY ==
[2024-01-21 09:39] LABS: Add Urine Microscopic? NO; Appearance Urine Clear (Clear); Bilirubin Urine Negative (Negative); Blood Urine Negative (Negative); Color Urine Yellow (Yellow); Glucose Urine UA Negative (Negative); Ketones Urine Negative (Negative); Leukocyte Esterase Ur Negative LEU/UL (Negative); Nitrate Urine Negative (Negative); Protein Urine Negative (Negative); Specific Grav Ur 1.016 (1.001-1.035); Urobilinogen Urine 0.2 mg/dL (<2.0); pH Urine 5.5 (5.0-9.0)
== END 2024-01-21 09:20 | disposition home or self-care (01) ==
PROVIDERS: PCP Family Medicine; Visit Provider Family Medicine
DX: N39.0 Urinary tract infection, site not specified (principal)
CPT/HCPCS: 81003

== ENCOUNTER 2024-03-04 08:12 | Outpatient (CLI) | payer MEDICARE, SELFPAY ==
[2024-03-04 08:55] LABS: Add Urine Microscopic? NO; Appearance Urine Clear (Clear); Bilirubin Urine Negative (Negative); Blood Urine Negative (Negative); Color Urine Yellow (Yellow); Glucose Urine UA Negative (Negative); Ketones Urine Negative (Negative); Leukocyte Esterase Ur Negative LEU/UL (Negative); Nitrate Urine Negative (Negative); Protein Urine Negative (Negative); Specific Grav Ur 1.012 (1.001-1.035)
[2024-03-04 09:03] LABS: Hematocrit 42.6 % (42.0-52.0); Hemoglobin 14.7 g/dL (14.0-18.0); Mean Corpuscular HGB Conc 34.5 g/dl (32-36); Mean Corpuscular Hemoglobin 31.5 pg (26-34); Mean Corpuscular Volume 91.2 fl (80-100); Mean Platelet Volume 9.8 fl (7.4-10.4); Platelet Count Result 210 k/mm3 (150-375); Red Blood Count 4.67 M/mm3 (4.6-6.20); Red Cell Distribution Width 13.9 % (11.5-14.5); White Blood Count 5.3 K/mm3 (4.5-10.0)
[2024-03-04 09:19] LABS: Alanine Aminotransferase 26 U/L (6-50); Albumin Level 3.9 g/dL (3.5-5.1); Alkaline Phosphatase 76 U/L (38-126); Anion Gap 7 mmol/L (4-12); Aspartate Amino Transferase 32 U/L (17-59); Bilirubin,Total 1.1 mg/dL (0.2-1.3); Blood Urea Nitrogen 13 mg/dL (9-20); Calcium 8.9 mg/dL (8.4-10.2); Carbon Dioxide 26 mmol/L (22-30); Chloride 105 mmol/L (98-107); Cholesterol 167 mg/dL (0-200); Estimated Glomerular Filt Rate > 60; Glucose 133 mg/dL (65-110); HDL Direct 49 mg/dL; Sodium 138 mmol/L (137-145); Triglycerides 93 mg/dL (<150)
[2024-03-04 09:30] LABS: LDL Cholesterol Direct 94 mg/dL
[2024-03-04 09:42] LABS: Hemoglobin A1C 5.8 % (<5.7)
[2024-03-04 09:49] LABS: Prostate Specific Antigen 0.5 ng/mL (< OR = 4.0)
== END 2024-03-04 08:13 | disposition home or self-care (01) ==
LOC: ANHLAB 08:15
PROVIDERS: PCP Family Medicine; Visit Provider Physician Assistant Medical
DX: R73.01 Impaired fasting glucose (principal); E78.2 Mixed hyperlipidemia; I10 Essential (primary) hypertension; Z12.5 Encounter for screening for malignant neoplasm of prostate
CPT/HCPCS: 36415; 80053; 80061; 81003; 83036; 84153; 84443; 85027

== ENCOUNTER 2024-03-13 09:04 | Outpatient (CLI) | payer MEDICARE, SELFPAY ==
--- NOTE | ~2024-03-13 | XR_ITS ---
EXAMINATION: XR hip LT 2V w AP pelvis DATE: 03/13/2024 09:24 INDICATION: Left hip pain. TECHNIQUE: An anteroposterior view of the pelvis and 2 views of left hip were obtained. COMPARISON: Pelvis and hip radiographs 06/23/2019 FINDINGS: Alignment is normal. No fracture. There is severe lumbar spondylosis. There is moderate rig ht hip osteoarthritis and severe left hip osteoarthritis. There is an electrode overlying the sacrum on the right. IMPRESSION: 1. Moderate right hip osteoarthritis and severe left hip osteoarthritis. Reviewed, dictated and finalized at location A. 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
== END 2024-03-13 09:05 | disposition home or self-care (01) ==
PROVIDERS: PCP Family Medicine; Visit Provider Physician Assistant Medical
DX: M16.0 Bilateral primary osteoarthritis of hip (principal)
CPT/HCPCS: 73502

== ENCOUNTER 2024-06-05 09:00 | Outpatient (RCR) | payer MEDICARE, SELFPAY ==
--- NOTE | 2024-05-05 08:54 | OPREHPOC ---
Outpatient Therapy Plan of Care This is a Multidisciplinary Plan of Care that may contain components documented by all disciplines (PT, OT, and ST.) PT Problem 1 PT Problem #1 Knowledge Deficit PT Goal 1 Goal / Goal Update *indep with HEP Target Visit 8 PT Problem 2 PT Problem #2 Impaired Functional Mobility PT Goal 1 Goal / Goal Update *2 minute walking test distance with walking stick , 300' to improve community mobility Target Visit 8 PT Goal 2 Goal / Goal Update *sit/stand transfer with use of 1 UE on chair Target Visit 8 PT Problem 3 PT Problem #3 Impaired Strength PT Goal 1 Goal / Goal Update * pt perform L single leg standing tolerance of 10 seconds with 1 UE support, to improve gait and stance phase Target Visit 8
--- NOTE | 2024-05-05 08:54 | PTOPEVAL1 ---
Assessment and note entered by Carla Guthrie PT Evaluation Information Assessment Status Evaluation ICD-10 Condition Codes (PT) Pain in left hip M25.552 Other ICD-10 Condition Codes ( OA L hip M16.10 PT) Onset Jan 2024 Subjective Information saw ortho, discussed THR; x ray report states moderate to severe OA with osteophytes use walking stick due to hip pain; activity: retired; use walking stick only when out in community; indep with bathing, dressing and in home tasks; have assist for out side, heavy tasks does not do any leg exercises or fitness; have basement, do not go down there very often; Reported Pain Level Pain Score Self Report Additional Pain Score Comments pain range in the past week 1-02/05; L anterior hip, intermittent into L LE to knee also: decreased circulation of legs- wear compression socks; increase pain: sitting too long and go to stand up; decrease pain: change positions, muscle cream; ibuprofen sleeping- does not sleep well in general, hip does not affect his pain Assessment PT Clinical Summary Juan has the diagnosis of L hip pain, OA. Provider has discussed injections and THR with pt. History includes bilateral TKR, HTN and diabetes. xray report states moderate to severe L hip OA with osteophyte formation. LE functional scale rating of 61% limitation in activity level. He uses a walking stick when out in community. He does not perform any exercises and has a sedentary lifestyle. With the evaluation: he has pain with L hip flexion and abduction motions on mat; decreased L hip IR motion with pain; 2 minute walking test distance with walking stick of 240'; weakness of hip due to painful motions. Skilled PT services are indicated for modalities to decrease pain, therapeutic exercises to increase strength of L LE and education for HEP. Plan of Care Interventions Electrical Stimulation,Hot Pack/Cold Pack,Manual Therapy,Neuro Re-education,Patient/Caregiver Education,Therapeutic Activities,Therapeutic Exercise,Ultrasound,Other Other Interventions taping PT Services Indicated Yes Treatment Frequency and 1-2x/wk for 8 visits Duration These treatments will address the objective and functional deficits as defined above. The patient will be advanced safely and appropriately in order for the patient to progress towards his/her prior level of function. Additional exercises will be introduced and as well as a comprehensive home exercise program upon discharge, if needed, ?to ensure carryover of functional gains achieved in the clinic. This treatment plan has been reviewed and agreement upon by the patient.
--- NOTE | 2024-05-28 10:39 | PCPTNOTE ---
Pt cancelled as he had to go out of town unexpectantly..
--- NOTE | 2024-06-05 09:45 | PTOPDC ---
Assessment and note entered by Carla Guthrie, PT Assessment Status Discharge ICD-10 Condition Codes (PT) Pain in left hip M25.552 Other ICD-10 Condition Codes ( OA L hip M16.10 PT) Onset Jan 2024 Subjective Information feel better since coming for therapy, less pain and moving better; if I do too much, it hurts the next day; have not had any falls; have been doing the exercises; go back to dr next month and see when I can get on the schedule for THR. agrees to discharge from PT and continue with HEP and walking as tolerated. Reported Pain Level Pain Score Self Report Additional Pain Score Comments pain is OK now, up to 10/10 when over did it few days ago; Assessment PT Clinical Summary Dimitri has received a total of 8 PT sessions. Compared to the initial evaluation: pain rating same at 0-10/10; 2 minute walking test distance from 240 to 400' with 1 walking stick; increase strength of LE's: sit/stand without UE use x 5 reps and good control; single leg standing on L with 1 UE support x 22 seconds; LE functional scale rating from 61 to 60% limitation in activity level; education for HEP and activity/rest balance for pain control. The goals were achieved. Discharge PT services. Dimitri is to continue with his HEP, walking and activity as tolerated. Plan of Care PT Services Indicated No
== END 2024-06-05 11:09 | disposition home or self-care (01) ==
LOC: ANHPT 09:00
PROVIDERS: PCP Family Medicine; Visit Provider Physician Assistant Surgical
DX: M16.10 Unilateral primary osteoarthritis, unspecified hip (principal)
CPT/HCPCS: 97110; 97161; 97530

== ENCOUNTER 2024-07-02 09:06 | Outpatient (CLI) | payer MEDICARE, SELFPAY ==
--- NOTE | ~2024-07-02 | XR_ITS ---
EXAMINATION: XR hip LT 2V w AP pelvis DATE: 07/02/2024 09:34 INDICATION: Unilateral primary osteoarthritis, left hip. TECHNIQUE: An anteroposterior view of the pelvis and 2 views of left hip were obtained. COMPARISON: Pelvis and left hip radiographs 03/13/2024 FINDINGS: Alignment is normal. No fracture. There is moderate right hip osteoarthritis and severe lef t hip osteoarthritis. There is an electrode overlying the sacrum on the right. There is severe lumbar spondylosis. IMPRESSION: 1. Moderate right hip osteoarthritis and severe left hip osteoarthritis. Reviewed, dictated and finalized at location A. [employer]
--- OUTSIDE RECORDS SUMMARY | 2024-07-02 09:52 | XMS_ITS | Continuity of Care Document ---
Author Organization [facility] Address [address] [place] [address] Phone Care Team Providers Care Personal Clothing Laundry Aide Name Role Phone Stratton OD, Pete Unavailable Unavailable Advance Directives Directive Yes / No Effective Date File Name No Information Encounters Encounter Description Practice Location Reason(s) For Visit Diagnoses Date Provider Providers Copied on Encounter [facility], [address], [place], [place], [id number], [place] tel:[phone] [facility] No Information 0 4-200 1 Stratton OD Pete. [address] , [address], [place], [address], [place]. tel:[phone] Family History Family Member Type Diagnosis Age At Onset No Information Payers Payer name Insurance type Covered green party ID Authoriza tion(s) No Information Social History [...]
== END 2024-07-02 09:07 | disposition home or self-care (01) ==
PROVIDERS: PCP Family Medicine; Visit Provider Orthopaedic Surgery
DX: M16.0 Bilateral primary osteoarthritis of hip (principal)
CPT/HCPCS: 73502

== ENCOUNTER 2024-09-02 08:39 | Outpatient (CLI) | payer MEDICARE, SELFPAY ==
--- OUTSIDE RECORDS SUMMARY | 2024-09-02 08:51 | XMS_ITS | Continuity of Care Document ---
Author Organization [facility] Address [address] [place] [address] Phone Care Team Providers Care Ladle Builder Name Role Phone Stratton OD, Pete Unavailable Unavailable Advance Directives Directive Yes / No Effective Date File Name No Information Encounters Encounter Description Practice Location Reason(s) For Visit Diagnoses Date Provider Providers Copied on Encounter [facility], [address], [place], [place], [id number], [place] tel:[phone] [facility] No Information 0 4-200 1 Stratton OD Pete. [address] , [address], [place], [address], [place]. tel:[phone] Family History Family Member Type Diagnosis Age At Onset No Information Payers Payer name Insurance type Covered constitution party ID Authoriza tion(s) No Information Social [...]
[2024-09-02 09:34] LABS: Alanine Aminotransferase 28 U/L (6-50); Alkaline Phosphatase 81 U/L (38-126); Anion Gap 7 mmol/L (4-12); Aspartate Amino Transferase 30 U/L (17-59); Bilirubin,Total 0.9 mg/dL (0.2-1.3); Blood Urea Nitrogen 10 mg/dL (9-20); Calcium 8.8 mg/dL (8.4-10.2); Carbon Dioxide 27 mmol/L (22-30); Chloride 103 mmol/L (98-107); Estimated Glomerular Filt Rate > 60; Glucose 144 mg/dL (65-110); Potassium 4.4 mmol/L (3.4-5.0); Sodium 137 mmol/L (137-145)
[2024-09-02 09:53] LABS: Hemoglobin A1C 5.9 % (<5.7)
[2024-09-02 11:06] LABS: MALB Creatinine Ratio < 15.4 mg/g (0-30); Microalbumin Urine Random < 6.0 mg/L (0-16.7)
== END 2024-09-02 08:40 | disposition home or self-care (01) ==
LOC: ANHLAB 08:43
PROVIDERS: PCP Family Medicine; Visit Provider Physician Assistant Medical
DX: E11.9 Type 2 diabetes mellitus without complications (principal); I10 Essential (primary) hypertension
CPT/HCPCS: 36415; 80053; 82043; 83036

== ENCOUNTER 2024-09-14 08:48 | Outpatient (CLI) | payer MEDICARE, SELFPAY ==
--- OUTSIDE RECORDS SUMMARY | 2024-09-14 09:05 | XMS_ITS | Continuity of Care Document ---
Author Organization [facility] Address [address] [place] [address] Phone Care Team Providers Care Quencher Operator Name Role Phone Stratton OD, Pete Unavailable Unavailable Advance Directives Directive Yes / No Effective Date File Name No Information Encounters Encounter Description Practice Location Reason(s) For Visit Diagnoses Date Provider Providers Copied on Encounter [facility], [address], [place], [place], [address], [place] tel:[phone] [facility] No Information 0 4-200 1 Stratton OD Pete. [address] , [address], [place], [address], [place]. tel:[phone] Family History Family Member Type Diagnosis Age [...]
[2024-09-14 09:37] LABS: Urine Cotinine NEGATIVE
== END 2024-09-14 08:49 | disposition home or self-care (01) ==
PROVIDERS: PCP Family Medicine; Visit Provider Orthopaedic Surgery
DX: Z79.899 Other long term (current) drug therapy (principal)
CPT/HCPCS: 80307

== ENCOUNTER 2024-12-07 09:48 | Outpatient (CLI) | payer MEDICARE, SELFPAY ==
--- OUTSIDE RECORDS SUMMARY | 2024-12-07 09:58 | XMS_ITS | Continuity of Care Document ---
Author Organization [facility] Address [address] [place] [address] Phone Care Team Providers Care Housing Officer Name Role Phone Stratton OD, Pete Unavailable Unavailable Advance Directives Directive Yes / No Effective Date File Name No Information Encounters Encounter Description Practice Location Reason(s) For Visit Diagnoses Date Provider Providers Copied on Encounter [facility], [address], [place], [place], [address], [place] tel:[phone] [facility] [place] No Information 0 4-200 1 Stratton OD Pete. [address] , [address], [place], [address], [place]. tel:[phone] Family History Family Member Type Diagnosis Age [...]
[2024-12-07 11:24] LABS: Hematocrit 40.4 % (42.0-52.0); Hemoglobin 14.0 g/dL (14.0-18.0); Immature Granulocyte Percent A 0.6 % (0-0.5); Lymphocytes Absolute Auto 1.05 K/mm3 (0.9-3.2); Mean Corpuscular HGB Conc 34.7 g/dl (32-36); Mean Corpuscular Hemoglobin 31.7 pg (26-34); Mean Corpuscular Volume 91.4 fl (80-100); Nucleated Red Blood Cells Absolute Auto 0.000 K/mm3 (0.0-0.012); Nucleated Red Blood Cells Perc 0.0 % (0.0-0.2); Platelet Count Result 206 k/mm3 (150-375); Red Blood Count 4.42 M/mm3 (4.6-6.20); White Blood Count 5.4 K/mm3 (4.5-10.0)
[2024-12-07 11:38] LABS: Albumin Level 4.0 g/dL (3.5-5.1); Estimated Glomerular Filt Rate > 60; Glucose 132 mg/dL (65-110)
[2024-12-07 12:03] LABS: Hemoglobin A1C 6.1 % (<5.7)
[2024-12-07 12:33] LABS: MRSA (PCR) NOT DETECTED (NOT DETECTE)
== END 2024-12-07 09:49 | disposition home or self-care (01) ==
PROVIDERS: PCP Family Medicine; Visit Provider Orthopaedic Surgery
DX: M16.12 Unilateral primary osteoarthritis, left hip (principal); Z01.818 Encounter for other preprocedural examination
CPT/HCPCS: 80307; 82040; 82565; 82947; 83036; 85025; 87641

== ENCOUNTER 2024-12-29 01:30 | Day surgery (SDC) | payer MEDICARE, SELFPAY ==
[2024-12-07 10:08] VITALS: BP 121/65; PULSE 68; RESP 16; TEMP 36.9; O2SAT 96; BMI 36.8
--- NOTE | 2024-12-07 10:30 | PC.NURSE ---
Report to the Outpatient Waiting Room, entrance under the green pavilion located off [facility], at time ___08:00am____ on date __12/29/24 . Planned Procedure Time: _10:00am .? Time changes happen often and if your time is changed the preop area will call you the afternoon before. - You and your visitor will be asked to self-screen and do not enter if you have any COVID symptoms. Please call surgeon if you need to reschedule. - A mask is optional within the hospital at this time. Patients may have clear liquids (water, carbonated beverages, clear teas, apple juice) until 3 hours prior to surgery with a maximum of 20 ounces. - No food from midnight until time of surgery and no smoking, or chewing tobacco (or any form of nicotine). No chewing gum, candy or mints. (07:00am) Take only the following medications with a SIP of water on the morning of surgery: Tyelenol if needed, Xanax if needed DO NOT STOP ANY OF YOUR OTHER PRESCRIPTION MEDICATIONS PRIOR TO SURGERY EXCEPT THE FOLLOWING Hold all vitamins and supplements for 3 days per anesthesiologist. Date of last dose 12/25/24 Medications to discontinue per physician Aspirin and Ibuprofen to HOLD for [address] Cortes Date to take last dose____12/21/24 Please no make-up, nail andorran, hairspray, perfume, deodorant, or body powder the day of surgery.? No jewelry (including any body piercings) or valuables the day of surgery, leave them at home.? Please take a shower or bath the night before, or the morning of, surgery with an antibacterial soap.?( DIAL Yellow ) Wear comfortable, loose fitting clothing. Overnight bag, walker, tennis shoes, Supervisor Assembling w Phone if needed. - Jewelry must be removed prior to entering the operating room.? Rings and piercings that are not removed may be cut off. - The hospital will not accept responsibility for valuables.? - Please leave all valuables, including medications, at home the day of surgery. If you are going home after surgery, a licensed dray truck driver must drive you home.? - NO public transportation without another adult if you receive anesthesia. - We recommend that an adult stay with you for 24 hours following discharge. - We also recommend that you do not drive, make important decision, drink alcoholic beverages, or take any drugs that were not prescribed by your health care provider for at least 24 hours after your discharge time. Follow any additional instructions given to you from your surgeon. Telephone instructions given to __Patient and asked if any additional questions and then verbalized understanding. Patient advised to call surgeon office or pre surgery nurse liaison [phone] if any additional questions.
[2024-12-29] VITALS (15 sets, daily range): BP systolic 115–136; BP diastolic 50–71; PULSE 65–94; RESP 14–22; TEMP 36.4–36.9; O2SAT 93–100
--- NOTE | ~2024-12-29 | XR_ITS ---
EXAMINATION: XR hip LT min 2V DATE: 12/29/2024 12:55 INDICATION: Left total hip arthroplasty TECHNIQUE: 2 views left hip FINDINGS: There is a left total hip arthroplasty in expected position. Subcutaneous gas with soft tissue swelling are consistent with recent surgery. IMPRESSION: 1. Recent left total hip arthroplasty. Reviewed, dictated and finalized at location O.
[2024-12-29] MEDS: ACETAMINOPHEN 500 MG TABLET 1000 MG PO (08:24)
[2024-12-29] MEDS: LACTATED RINGERS 1,000 ML 30 ML IV CONT ×2 (08:30→12:23)
[2024-12-29] MEDS: TRANEXAMIC ACID 1,000MG/ISO100 1,000 MG/100 ML BAG 200 MG IVPB (08:35)
--- NOTE | 2024-12-29 09:47 | WPDANESEPPF ---
Anes - Initial Pre Proc Eval Procedure: Operation Date: 12/29/24 10:00 Proposed Procedures p Left Total Hip Arthroplasty - Alexey Cortes MD Date/Time: 12/29/24 09:47 Surgeon: Alexey Cortes MD Pre Op Diagnosis: primary OA left hip Patient Data Age: 74 Gender: M Height: 1.8 m Weight: 118 kg Last Vital Signs Temp 36.6 C 12/29/24 08:05 Pulse 65 12/29/24 08:05 Resp 18 12/29/24 08:05 BP 127/66 12/29/24 08:05 Pulse Ox 96 12/29/24 08:05 O2 Del Method Room Air 12/29/24 08:05 Allergies Allergy/AdvReac Type Severity Reaction Status Date / Time No Known Allergies Allergy Verified 12/29/24 08:11 Home Medications ?Medication ?Instructions ?Recorded ?Confirmed ?Type magnesium 250 mg tablet 250 mg PO DAILY 04/10/19 12/29/24 History vitamin B complex 1 tablet PO DAILY 04/10/19 12/29/24 History vitamin E 268 mg (400 unit) capsule 800 unit PO QAM 04/10/19 12/29/24 History glucosamine sulfate 500 mg tablet 500 mg PO BID 06/23/19 12/29/24 History (Glucosamine) multivitamin 1 tablet PO DAILY 06/23/19 12/29/24 History potassium gluconate 600 mg (99 mg) 600 mg PO QAM 07/23/22 12/29/24 History tablet tamsulosin 0.4 mg capsule 0.4 mg PO HS 07/23/22 12/29/24 History atorvastatin 10 mg tablet (Lipitor) 10 mg PO QPM 07/08/24 12/29/24 History aspirin 81 mg tablet 81 mg PO DAILY 09/09/24 12/29/24 History acetaminophen 500 mg capsule 1,000 mg PO Q6H PRN pain 12/07/24 12/29/24 History ibuprofen 200 mg tablet (Advil) 600 mg PO Q6H PRN pain 12/07/24 12/29/24 History alprazolam 0.5 mg tablet (Xanax) 0.5 mg PO DAILY PRN anxiety #30 12/14/24 12/29/24 Rx tabs atenolol 25 mg tablet See Rx Instructions .Route 12/14/24 12/29/24 Rx .COMPLEX #90 tabs Laboratory Tests 12/29/24 08:30 Blood Type A Positive Antibody Screen Negative Patient hx anesthesia problems: none Family hx anesthesia problems: none Results Review: All pre-operative results and documents have been reviewed as part of the pre-operative evaluation. [facility] Past Medical History Medical History CAD (coronary artery disease) mild per CT angiogram 06/10/24 Hemoglobin A1c less than 7.0% 10/13/19 A1c was 5.9 IFG (impaired fasting glucose) History of skin cancer History of actinic keratoses Surgical History Surgical History Impingement of right shoulder Acromioplasty July 30, 2022 Arthritis of right acromioclavicular joint Distal clavicle excision July 30, 2022 History of elbow surgery Right 2000 History of neck surgery 2003 Bone spur Spine H/O repair of rotator cuff Right History of surgery on arm Left arm-tendon transfer History of knee replacement 2003 Dr. Topete-Dr. Hernandez Family History Family History Son Cancer Grandparent Heart disease Mother CHF (congestive heart failure) Social History Social History Social History: Smoking packs per day: 1.5 Smoking cigarettes per day: 30.0 Years smoked: 62 Smoking pack-years: 93.00 Smoking status: Former smoker Tobacco type: cigarettes Second hand tobacco smoke exposure: Yes Smoking end date: 04/29/22 Additional smoking assessment comments: denies any nicotine since 2022 Alcohol intake: current Drinks per week: 70 Alcohol use details: 10 per day Substance use: never Substance use type: does not use Do You Feel Safe in your Home?: Yes Lack of Transportation: No Lack of Food: Never True Current Housing: I Have Housing Concerned About Future Housing: No Difficulty Paying Gas/Electric Bills: No Difficulty Paying for Meds: No Currently Unemployed: YES Education: Master's Degree or Higher Difficulty w/ Childcare or Family Care: No Living arrangements: with family Additional living arrangements comments: Occupation/Education: retired Gender identity (if verbalized by the patient): Male Sexual Orientation (if Verbalized by the Patient): Straight or Heterosexual Spiritual care concerns: No Anes - Eval Final PreProcedure Day of Procedure 12/29/24 09:47 Patient weight: obese Heart: regular rate and rhythm Lungs: decreased breath sounds Airway: Mallampati scale class III Neurological: alert and oriented Last oral intake: >/= 8 hours ASA classification: III Emergent: no Anesthetic plan: proceed Anesthesia type and monitoring: general ETT and standard monitoring Results Review: All pre-operative results and documents have been reviewed as part of the pre-operative evaluation. Informed Consent: The patient's anesthetic plan and its attendant risks and benefits were discussed with the patient/family/POA. Questions were solicited and answers provided to the satisfaction of the patient/family/POA.
--- NOTE | 2024-12-29 09:49 | WPDHPUPDATE1 ---
History and Physical Update Update Date/Time: 12/29/24 09:49 History and Physical has been reviewed, including an updated exam of the patient. There are NO changes in the patient's condition. Risks, benefits, and alternatives have been discussed and questions answered. Patient agrees to proceed with procedure.
[2024-12-29] MEDS: ceFAZolin 2 GM in SODIUM CHLORIDE 0.9% IV 50 ML 100 ML IVPB ×2 (09:57→17:46)
[2024-12-29] MEDS: SODIUM CHLORIDE 0.9% IV 37.7 ML, MORPHINE SULFATE INJ (*CRX) 2 MG, ROPivacaine HCL 1% 2... INFILTRATE (10:46)
[2024-12-29] MEDS: TRANEXAMIC ACID 1,000 MG/10 ML AMPUL 1000 MG IV PUSH (11:47)
[2024-12-29] MEDS: fentaNYL CITRATE INJ (*CRX) 100 MCG/2 ML VIAL 25 MCG IV PUSH ×8 (12:53→13:34)
--- NOTE | 2024-12-29 13:15 | W.PM.PROC2 ---
Procedure Note - Detailed Date of Procedure 12/29/24 Pre-op Diagnosis Left hip degenerative arthritis. Post-op Diagnosis Same Procedure Performed Left Total Hip Arthroplasty Surgeon Alexey Cortes MD Building Carpenter Helper Scarlet Franco PA-C Anesthesia General Description of Procedure The patient was given preoperative antibiotics. A general anesthetic was administered. The patient was carefully placed in the lateral decubitus position on the PEG board. The shoulders and hips were carefully positioned for component and leg length positioning reference. The hip was prepped and draped in the usual sterile fashion. A longitudinal incision was created over the posterior aspect of the greater trochanter. Careful dissection was brought down through the deep fascia with electrocautery. A minimally invasive optimized posterior approach to the hip was performed. The short external rotators and capsule were taken down in an L-shaped capsulotomy. The tissue was tagged for later repair using number 2 high strength suture. The femoral neck was measured and taken in situ. The femoral head was removed. The acetabulum was carefully exposed. The inferior capsule was released. The labrum was resected. The acetabulum was sequentially reamed to the intended cup size. The cup was impacted into position with excellent press-fit. Typical anatomic landmarks, including the bony contact points as well as the inferior transverse acetabular ligament were used to confirm cup positioning with preoperative templating. Attention was turned to the femur, which was carefully exposed. The hip was reamed and then broached sequentially. Excellent press-fit was obtained with the broach. The hip was trialed. Measurements were utilized, including the lesser trochanter as well as the center of the femoral head and the tip of the trochanter, and excellent assessment of the offset and leg lengths were confirmed. The real component was impacted into position. Trialing confirmed appropriate leg length and offset with soft tissue balancing as well apparent feel of the leg, both at the knee and the heel. Soft tissues were assessed using the the iliotibial band. Reduction of the posterior capsule and external rotators were also used as a secondary assessment. The hip was copiously irrigated with pulsatile lavage periodically throughout the procedure. The real components were then assembled and reduced. The hip was stable throughout typical maneuvers, including extension, external rotation to 70 degrees, the position of sleep as well as flexion to 90 degrees with internal rotation past 35 degrees. The shake test confirmed stability without impingement. Osteophytes were removed as necessary. The short external rotators and capsule were repaired back to the posterior trochanter through drill holes. The deep fascia was repaired with running number 2 barbed suture, followed by 2-0 Stratafix suture and 3-0 Stratafix suture in the dermis. Steri-Strips were placed on the skin, followed by a sterile occlusive dressing. There were no complications. Meticulous hemostasis was maintained with the AquaMantys device. The patient was brought to the recovery room in stable condition. There were no complications. Physician banking assistant, Scarlet Franco PA-C, required for surgery; including patient positioning, draping, tissue retraction, maintaining instrument position, hip dislocation/ relocation, wound closure, and dressing placement. Implants The [employer] Insignia hip stem, high offset size 5 , was utilized with excellent press-fit. The 56 mm Trident II acetabular component was impacted with excellent press-fit stability. 10 degree elevated polyethylene liner the +5, 36 mm Biolox ceramic femoral head was utilized. Estimated Blood Loss 300 Drains No Packing No Pathology None sent Complications No immediate complications Condition Stable Disposition PACU [facility] Billing Surgery - Charge Forward: Surgery Billing
--- NOTE | 2024-12-29 14:20 | PC.NURSE ---
This patient, Dimitri Yap, was admitted to 3 [facility] Surg Room 320-01. Patient/family oriented to hospital policies and general routines including ID bracelet, bed and alarms, visiting hours, pain management, procedures, bathroom and other care routines, personal items, smoking policy, room service/diet, and visiting hours. Information on how to activate the Rapid Response Team has been discussed. Patient/Family are encouraged to report perceived risks to care and to ask questions if they do not understand what they are told or what they should do.
[2024-12-29] MEDS: oxyCODONE/ACETAMINOPHEN (*CRX) 10-325 MG TABLET 1 TAB PO (15:26)
[2024-12-29] MEDS: SODIUM CHLORIDE 0.9% IV 1,000 ML 125 ML IV CONT (15:27)
[2024-12-29] MEDS: ATORVASTATIN 10 MG TABLET PO (17:45)
[2024-12-29] MEDS: ACETAMINOPHEN 325 MG TABLET 650 MG PO ×2 (17:45→23:40)
[2024-12-29] MEDS: SENNA/DOCUSATE SODIUM TABLET 2 TAB PO (17:45)
[2024-12-29] MEDS: ALPRAZolam (*CRX) 0.5 MG TABLET PO (20:11)
[2024-12-29] MEDS: ASPIRIN 81 MG ENTERIC TABLET PO (20:12)
[2024-12-29] MEDS: FAMOTIDINE 20 MG TABLET PO (20:12)
[2024-12-29] MEDS: TAMSULOSIN HCL 0.4 MG CAPSULE PO (20:15)
[2024-12-30 00:05] VITALS: BP 119/59; PULSE 85; RESP 18; TEMP 36.3; O2SAT 99
[2024-12-30] MEDS: ceFAZolin 2 GM in SODIUM CHLORIDE 0.9% IV 50 ML 100 ML IVPB ×2 (01:25→12:40)
[2024-12-30 04:05] VITALS: BP 102/48; PULSE 80; RESP 18; TEMP 36.6; O2SAT 96
[2024-12-30] MEDS: ACETAMINOPHEN 325 MG TABLET 650 MG PO ×2 (05:11→12:40)
[2024-12-30 05:50] LABS: Hematocrit 38.3 % (42.0-52.0); Hemoglobin 12.7 g/dL (14.0-18.0); Immature Granulocyte Percent A 0.3 % (0-0.5); Lymphocytes Absolute Auto 1.04 K/mm3 (0.9-3.2); Mean Corpuscular HGB Conc 33.2 g/dl (32-36); Mean Corpuscular Hemoglobin 31.4 pg (26-34); Mean Corpuscular Volume 94.6 fl (80-100); Nucleated Red Blood Cells Absolute Auto 0.000 K/mm3 (0.0-0.012); Nucleated Red Blood Cells Perc 0.0 % (0.0-0.2); Platelet Count Result 179 k/mm3 (150-375); Red Blood Count 4.05 M/mm3 (4.6-6.20); White Blood Count 11.7 K/mm3 (4.5-10.0)
[2024-12-30 06:12] LABS: Anion Gap 5 mmol/L (4-12); Blood Urea Nitrogen 11 mg/dL (9-20); Calcium 8.6 mg/dL (8.4-10.2); Carbon Dioxide 27 mmol/L (22-30); Chloride 104 mmol/L (98-107); Estimated CRCL calculation 105 ml/min; Estimated Glomerular Filt Rate > 60; Glucose 184 mg/dL (65-110); Potassium 3.5 mmol/L (3.4-5.0); Sodium 136 mmol/L (137-145)
[2024-12-30 06:17] VITALS: BP 110/46; PULSE 69; RESP 18; TEMP 36.3; O2SAT 99
[2024-12-30] MEDS: SENNA/DOCUSATE SODIUM TABLET 2 TAB PO (08:31)
[2024-12-30] MEDS: CELECOXIB 200 MG CAPSULE PO (08:32)
[2024-12-30] MEDS: ASPIRIN 81 MG ENTERIC TABLET PO (08:32)
[2024-12-30] MEDS: oxyCODONE/ACETAMINOPHEN (*CRX) 10-325 MG TABLET 1 TAB PO (08:32)
[2024-12-30] MEDS: FAMOTIDINE 20 MG TABLET PO (08:33)
[2024-12-30 11:57] VITALS: BP 100/46; PULSE 78; RESP 18; TEMP 36.4; O2SAT 97
[2024-12-30 12:51] LABS: Add Urine Microscopic? NO; Appearance Urine Clear (Clear); Glucose Urine UA 1+ mg/dL (Negative); Leukocyte Esterase Ur Negative LEU/UL (Negative); Nitrate Urine Negative (Negative); Specific Grav Ur 1.018 (1.001-1.035)
== END 2024-12-30 14:05 | disposition home or self-care (01) ==
LOC: ANHSURGERY 12:34 → ANH3MEDSUR 14:24
PROVIDERS: Physician Assistant Surgical; PCP Family Medicine; Visit Provider Orthopaedic Surgery
PROC: (CPT 27130; principal; 2024-12-29 10:00)
DX: M16.12 Unilateral primary osteoarthritis, left hip (principal); Z87.891 Personal history of nicotine dependence; E66.9 Obesity, unspecified; Z68.36 Body mass index [BMI] 36.0-36.9, adult
CPT/HCPCS: 27130; 36415; 73502; 80048; 81003; 85025; 86850; 86900; 86901; 97110; 97161; 97166; 97530; 97535; J0690; A9270; C1776; J0166; J1100; J1171; J1885; J2003; J2270; J2405; J2704; J2795; J3010; J7030; J7120

== ENCOUNTER 2025-03-08 07:30 | Outpatient (CLI) | payer MEDICARE, SELFPAY ==
--- OUTSIDE RECORDS SUMMARY | 2000-05-02 11:00 | XMS_ITS | Continuity of Care Document ---
Author Organization [facility] Address [address] [place] [address] Phone Care Team Providers Care Breaster Name Role Phone Stratton OD, Pete Unavailable Unavailable Advance Directives Directive Yes / No Effective Date File Name No Information Encounters Encounter Description Practice Location Reason(s) For Visit Diagnoses Date Provider Providers Copied on Encounter [facility], [address], [place], [place], [id number], [place] tel:[phone] [facility] No Information [phone] Stratton OD Pete. [address] , [address], [place], [address], [place]. tel:[phone] Family History Family Member Type Diagnosis Age At Onset No Information Payers Payer name Insurance type Covered democrat ID Authoriza tion(s) No Information Social History Type Description Quantity Date Captured Comments Sex Male Smoking Status No Information Chief Complaint And Reason For Visit No Information Reason For Referral Reason For Referral No Information History Of Present Illness Encounter Date Complaint History Of Prese nt Illness No Information Functional Status Date Functional Assessmen t No Information Instructions Date Instruction Additional Infor mation No Information Assessments Type Assessment Date No Information Patient Care Teams Name Effective Dates (start - stop) Status Members No Information
[2025-03-08 08:08] LABS: Hematocrit 41.7 % (42.0-52.0); Hemoglobin 14.1 g/dL (14.0-18.0); Mean Corpuscular HGB Conc 33.8 g/dl (32-36); Mean Corpuscular Hemoglobin 30.1 pg (26-34); Mean Corpuscular Volume 88.9 fl (80-100); Platelet Count Result 220 k/mm3 (150-375); Red Blood Count 4.69 M/mm3 (4.6-6.20); White Blood Count 5.1 K/mm3 (4.5-10.0)
[2025-03-08 08:27] LABS: Alanine Aminotransferase 27 U/L (6-50); Albumin Level 4.0 g/dL (3.5-5.1); Alkaline Phosphatase 91 U/L (38-126); Anion Gap 8 mmol/L (4-12); Aspartate Amino Transferase 33 U/L (17-59); Bilirubin,Total 0.8 mg/dL (0.2-1.3); Blood Urea Nitrogen 11 mg/dL (9-20); Calcium 8.5 mg/dL (8.4-10.2); Carbon Dioxide 27 mmol/L (22-30); Chloride 102 mmol/L (98-107); Cholesterol 139 mg/dL (0-200); Estimated Glomerular Filt Rate > 60; Glucose 167 mg/dL (65-110); HDL Direct 51 mg/dL; Potassium 4.2 mmol/L (3.4-5.0); Sodium 137 mmol/L (137-145); Total Protein 7.3 g/dL (6.3-8.2); Triglycerides 77 mg/dL (<150)
[2025-03-08 08:28] LABS: Hemoglobin A1C 6.3 % (<5.7)
[2025-03-08 08:59] LABS: Prostate Specific Antigen 0.5 ng/mL (< OR = 4.0)
[2025-03-08 09:03] LABS: Thyroid Stimulating Hormone 2.480 uIU/mL (0.465-4.680)
== END 2025-03-08 07:31 | disposition home or self-care (01) ==
PROVIDERS: PCP Family Medicine; Visit Provider Physician Assistant Medical
DX: Z12.5 Encounter for screening for malignant neoplasm of prostate (principal); I10 Essential (primary) hypertension; R73.01 Impaired fasting glucose; E66.9 Obesity, unspecified; Z68.36 Body mass index [BMI] 36.0-36.9, adult
CPT/HCPCS: 36415; 80053; 80061; 83036; 84153; 84443; 85027; G0103